=== PATIENT | male | born 1935 | race Caucasian/White ===

== ENCOUNTER 2016-11-13 10:04 | Emergency (ER) | payer MEDICARE, BC ==
[2016-11-13 11:35] VITALS: BP 145/84
[2016-11-13] MEDS ORDERED: Enoxaparin 80 MG/0.8 ML Syringe SUBCUT ONE (13:03)
--- NOTE | 2016-11-13 13:34 | EDM.PDOC ---
ED HPI GENERAL MEDICAL PROBLEM - General Chief Complaint: Lower Extremity Injury/Pain Stated Complaint: from clinic maybe BLOOD CLOT Time Seen by Provider: 11/13/16 11:39 Source of Information: Reports: Patient, Other (Clinic) - History of Present Illness INITIAL COMMENTS - FREE TEXT/NARRATIVE: This patient complains of swelling in his right calf for the last couple of days. He was seen in clinic and it was felt he might have a DVT. The patient doesn't know why he might have gotten this - Related Data Allergies Allergy/AdvReac Type Severity Reaction Status Date / Time No Known Allergies Allergy Verified 11/13/16 11:27 Home Meds: Home Meds Albuterol [Ventolin HFA] 11/13/16 [History] Fluticasone/Salmeterol [Advair Diskus 500-50] 11/13/16 [History] metFORMIN HCl [Metformin HCl] 11/13/16 [History] Past Medical History Cardiovascular History: Reports: High Cholesterol, Hypertension Respiratory History: Reports: Asthma Endocrine/Metabolic History: Reports: Diabetes, Type II - Past Surgical History HEENT Surgical History: Reports: Naso-Sinus Surgery, Tonsillectomy Male Surgical History: Reports: Prostatectomy Social & Family History - Tobacco Use Smoking Status *Q: Never Smoker Review of Systems - Review of Systems Review Of Systems: ROS reveals no pertinent complaints other than HPI. ED EXAM, GENERAL - Physical Exam Exam: See Below Exam Limited By: No Limitations General Appearance: Alert, WD/WN, No Apparent Distress Extremities: Other (The right lower leg from the knee down is moderately swollen. Veins appear to be slightly distended. No obvious erythema.) Neurological: Alert, Oriented, No Motor/Sensory Deficits Skin Exam: Warm, Dry Course - Vital Signs Last Recorded V/S: Last Vital Signs Temp 36.6 C 11/13/16 11:33 Pulse 71 11/13/16 11:33 Resp 14 11/13/16 11:33 BP 145/84 H 11/13/16 11:33 Pulse Ox 98 11/13/16 11:33 - Orders/Labs/Meds Orders: Active Orders 24 hr Category Date Time Status VL Duplex Lwr Ext Veins Ltd Rt [US] Stat Exams 11/13/16 11:47 Taken Labs: Laboratory Tests 11/13/16 11/13/16 11/13/16 Range/Units 12:00 12:00 12:00 WBC 11.6 H (4.5-11.0) K/uL RBC 4.39 (4.30-5.90) M/uL Hgb 13.8 (12.0-15.0) g/dL Hct 40.7 (40.0-54.0) % MCV 93 (80-98) fL MCH 31 (27-31) pg MCHC 34 (32-36) % Plt Count 133 L (150-400) K/uL Neut % (Auto) 72 H (36-66) % Lymph % (Auto) 14 L (24-44) % [place] % (Auto) 12 H (2-6) % Eos % (Auto) 2 (2-4) % Baso % (Auto) 0 (0-1) % PT 9.6 (9.5-12.0) sec INR 0.90 (0.80-1.20) APTT 26.6 L (27.0-36.0) sec Sodium 139 L (140-148) mmol/L Potassium 4.2 (3.6-5.2) mmol/L Chloride 105 (100-108) mmol/L Carbon Dioxide 30 (21-32) mmol/L Anion Gap 8.2 (5.0-14.0) mmol/L BUN 17 (7-18) mg/dL Creatinine 1.3 (0.8-1.3) mg/dL Est Cr Clr Drug Dosing 42.26 mL/min Estimated GFR (MDRD) 53 L (>60) Glucose 156 H (74-106) mg/dL Calcium 8.5 (8.5-10.1) mg/dL Total Bilirubin 0.4 (0.2-1.0) mg/dL AST 16 (15-37) U/L ALT 20 (12-78) U/L Alkaline Phosphatase 89 (46-116) U/L Total Protein 6.7 (6.4-8.2) g/dL Albumin 3.1 L (3.4-5.0) g/dL Globulin 3.6 H (2.3-3.5) g/dL Albumin/Globulin Ratio 0.9 L (1.2-2.2) Meds: Medications Discontinued Medications Generic Name Dose Route Start Last Admin Trade Name Freq PRN Reason Stop Dose Admin Enoxaparin Sodium 75 mg 11/13/16 13:03 Lovenox SUBCUT 11/13/16 13:04 ONETIME ONE - Re-Assessments/Exams Free Text/Narrative Re-Assessment/Exam: 11/13/16 13:35 Venous Doppler shows occlusion of the popliteal veins distally. Free Text/Narrative Re-Assessment/Exam: 11/13/16 13:35 Patient received Lovenox 80 mg subcutaneously. He'll be instructed in self administration. Discussed with him the need to be on Coumadin for several months he'll take the Lovenox twice daily for 5 days started him on the Coumadin today he'll need to follow-up with his doctor in a few days. Departure - Departure Time of Disposition: 13:36 Disposition: Home, Self-Care 01 Condition: Fair Clinical Impression: Deep venous thrombosis of calf - Discharge Information Forms: ED Department Discharge Additional Instructions: Give yourself shots of Lovenox 80 mg subcutaneously every 12 hours for the next 5 days. Take Coumadin 5 mg daily. See your doctor on Tuesday because your doctor will decide on how much Coumadin you should take and for how long you should take it. Your doctor will decide when you can to stop using the Lovenox also. Expect to be taking Coumadin for the next several months. Blood clots can break off and go to your lungs and cause some severe problems so if you begin developing sudden chest pain or shortness of breath called 911. - My Orders Last 24 Hours: My Active Orders 11/13/16 11:47 VL Duplex Lwr Ext Veins Ltd Rt [US] Stat - Assessment/Plan Last 24 Hours: My Active Orders 11/13/16 11:47 VL Duplex Lwr Ext Veins Ltd Rt [US] Stat
== END 2016-11-13 14:35 | disposition home or self-care (01) ==
LOC: JP.ED 10:04
DX: I82.4Z1 Acute embolism and thrombosis of unspecified deep veins of right distal lower extremity (principal); E78.00 Pure hypercholesterolemia, unspecified; I10 Essential (primary) hypertension; J45.909 Unspecified asthma, uncomplicated; E11.9 Type 2 diabetes mellitus without complications; Z98.890 Other specified postprocedural states
CPT/HCPCS: 36415; 80053; 85025; 85610; 85730; 93971; 96372; 99284; J1650

== ENCOUNTER 2017-06-24 08:42 | Day surgery (SDC) | payer MEDICARE, BC ==
[~2017-06-24 08:42] MED LIST: Bupivacaine 0.5% 50 ML MDV ONE; Dexamethasone 4 MG/ML SDV ONE; Lidocaine 1% with EPINEPHrine 1:100,000 50 ML MDV ONE; Neostigmine Methylsulfate 1 MG/ML 5 ML Syringe ONE; Ondansetron 4 MG/2 ML SDV ONE; Oxytocin 10 Units/1 ML SDV ONE; Propofol 200 MG/20 ML SDV ONE; Rocuronium 50 MG/5 ML Vial ONE; Succinylcholine/Normal Saline 200 MG/10 ML Syringe ONE; fentaNYL 250 MCG/5 ML SDV ONE
[2017-06-24] MEDS ORDERED: Sodium Chloride 0.9% 1,000 ML IV SCH (09:30)
[2017-06-24] MEDS ORDERED: methylPREDNISolone Sodium Succinate 125 MG/2 ML SDV IVPUSH ONE (09:47)
[2017-06-24] MEDS ORDERED: ceFAZolin 2 GM in Premix Bag 1 BAG IV ONE (10:00)
[2017-06-24] MEDS ORDERED: methylPREDNISolone Sodium Succinate 125 MG/2 ML SDV IM ONE (10:00)
[2017-06-24] MEDS ORDERED: Albuterol/Ipratropium 3.0-0.5 MG/3 ML Neb Soln NEB ONE (10:00)
[2017-06-24] MEDS ORDERED: metroNIDAZOLE/Normal Saline 500 MG in Premix Bag 1 BAG IV ONE (10:00)
[2017-06-24] MEDS ORDERED: Lidocaine 1% with EPINEPHrine 1:100,000 50 ML MDV INJECT ONE (10:53)
[2017-06-24] MEDS ORDERED: Bupivacaine 0.5% 50 ML MDV INJECT ONE (10:53)
[2017-06-24] MEDS ORDERED: Ketorolac 60 MG/2 ML SDV ONE (11:04)
[2017-06-24] MEDS ORDERED: Morphine 2 MG/ML Syringe IVPUSH ONE (11:28)
[2017-06-24] MEDS ORDERED: Acetaminophen/oxyCODONE 325-5 MG Tab PO PRN (13:10)
[2017-06-24 14:18] VITALS: BP 119/91
--- NOTE | 2017-06-27 09:21 | OR ---
DATE OF PROCEDURE: 06/24/2017 PROCEDURE: Right total extraperitoneal hernia repair, incarcerated, no evidence of strangulation. COMPLICATIONS: None. 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 ANESTHESIA: General/local. INDICATION: Indirect inguinal hernia. RISKS: Risks, benefits, alternatives, and limitations including, but not limited to infection, bleeding, and perforation of abdominal structures along with hernia failure were explained to the patient along with my experience, and they understand these risks and wished to proceed. PROCEDURE IN DETAIL: The patient was placed in supine position. An infraumbilical incision was made. This was carried down with electrocautery to the external fascia, which was opened with electrocautery. Army-[place] was used to spread down to the peritoneum and a Pean was used to create a potential space. Dissecting balloon was then gently advanced and subsequently insufflated for 1 minute. This was all performed under direct visualization. Minimal bleeding was noted during this process. The balloon was then removed and the cuff was insufflated. The hernia was readily identified. Using a nuytchh-ny-ywnuoe technique, the avascular plane was identified and blunt dissection was commenced. The sac was able to be reduced along with a cord lipoma. The vascular structures and vas deferens were identified, but were not interacted with in anyway. The "triangle of doom" and the "triangle of pain" were not interactive with or entered during this procedure. During this process, two 5 mm ports were also entered under direct visualization in the midline. This was done at the beginning of the procedure. The mesh was then rolled, introduced with an overlay from the pubic symphysis lateral. Approximately 2 cm of overlap of the pubic symphysis was commenced. This was unfolded and laid flat. The air was then removed. An additional 5 mm port was entered in the right upper abdomen due to small air leak through the peritoneum, although, no peritoneal injuries were seen. The patient tolerated the procedure well. Nando May MD /[id number]
== END 2017-06-24 14:19 | disposition home or self-care (01) ==
LOC: JP.SDS 08:42
PROVIDERS: ATTEND Surgery
DX: K40.30 Unilateral inguinal hernia, with obstruction, without gangrene, not specified as recurrent (principal); J44.9 Chronic obstructive pulmonary disease, unspecified; G47.33 Obstructive sleep apnea (adult) (pediatric); E11.9 Type 2 diabetes mellitus without complications; Z88.1 Allergy status to other antibiotic agents; Z88.2 Allergy status to sulfonamides; Z88.8 Allergy status to other drugs, medicaments and biological substances; Z91.018 Allergy to other foods
CPT/HCPCS: 49650; 82962; A9270; C1781; J0690; J1100; J1885; J2270; J2405; J2590; J2704; J2930; J3010; J7040; J7620

== ENCOUNTER 2018-09-12 21:18 | Emergency (ER) | payer MEDICARE, BC ==
[2018-09-12] MEDS ORDERED: Sodium Chloride 0.9% 10 ML Syringe FLUSH PRN (21:36)
[2018-09-12] MEDS ORDERED: methylPREDNISolone Sodium Succinate 125 MG/2 ML SDV IVPUSH ONE (21:36)
[2018-09-12] MEDS ORDERED: Albuterol 0.083% 2.5 MG/3 ML Neb Soln NEB ONE (21:36)
[2018-09-12] MEDS ORDERED: Benzonatate 100 MG Cap PO ONE (21:37)
--- NOTE | 2018-09-12 21:39 | EDM.PDOC ---
ED HPI GENERAL MEDICAL PROBLEM - General Chief Complaint: Respiratory Problem Stated Complaint: SOB Time Seen by Provider: 09/12/18 21:38 Source of Information: Reports: Patient History Limitations: Reports: No Limitations - History of Present Illness INITIAL COMMENTS - FREE TEXT/NARRATIVE: pt arrived wheezy and sob. Onset: Other ( started 2-3 days ago worse in the last 24 hours. ) Duration: Hour(s): Location: Reports: Chest Associated Symptoms: Reports: Cough, Shortness of Breath Upper Chest Pain Score (Numeric/FACES): 4 - Related Data Allergies Allergy/AdvReac Type Severity Reaction Status Date / Time alcohol Allergy Cannot Verified 09/12/18 21:28 Remember amoxicillin [From Augmentin] Allergy Cannot Verified 09/12/18 21:28 Remember atorvastatin Allergy Cannot Verified 09/12/18 21:28 Remember clavulanic acid Allergy Cannot Verified 09/12/18 21:28 [From Augmentin] Remember clindamycin Allergy Cannot Verified 09/12/18 21:28 Remember fish derived Allergy Cannot Verified 09/12/18 21:28 Remember montelukast [From Singulair] Allergy Cannot Verified 09/12/18 21:28 Remember niacin Allergy Cannot Verified 09/12/18 21:28 Remember pravastatin Allergy Cannot Verified 09/12/18 21:28 Remember Wsxjarx-Rpu-Hqn Reductase Allergy Cannot Verified 09/12/18 21:28 Inhibitor Remember Sulfa (Sulfonamide Allergy Cannot Verified 09/12/18 21:28 Antibiotics) Remember DUST MITE Allergy Cannot Uncoded 09/12/18 21:28 Remember MINT CHOCOLATE CHIPS Allergy Cannot Uncoded 09/12/18 21:28 Remember Home Meds: Home Meds Albuterol [Ventolin HFA] 2 puff INH Q4H PRN 11/13/16 [History] Fluticasone/Salmeterol [Advair Diskus 500-50] 1 puff INH BID 11/13/16 [History] metFORMIN HCl [Metformin HCl] 500 mg PO BID 11/13/16 [History] Codeine/guaiFENesin [guaiFENesin-Codeine Syrup] 10 ml PO ASDIRECTED PRN [History] Fluticasone Propionate [Flonase] 2 spray INH DAILY 06/21/17 [History] diphenhydrAMINE [Benadryl] 25 mg PO Q6H PRN 06/21/17 [History] Aspirin 81 mg PO DAILY 09/12/18 [History] Past Medical History Cardiovascular History: Reports: High Cholesterol, Hypertension Respiratory History: Reports: Asthma Genitourinary History: Reports: Prostate Disorder Endocrine/Metabolic History: Reports: Diabetes, Type II Oncologic (Cancer) History: Reports: Prostate - Past Surgical History HEENT Surgical History: Reports: Naso-Sinus Surgery, Tonsillectomy Respiratory Surgical History: Reports: None GI Surgical History: Reports: Colonoscopy Male Surgical History: Reports: Prostatectomy Endocrine Surgical History: Reports: None Social & Family History - Family History Family Medical History: Noncontributory - Tobacco Use Smoking Status *Q: Never Smoker - Caffeine Use Caffeine Use: Reports: Coffee, Tea - Recreational Drug Use Recreational Drug Use: No ED ROS GENERAL - Review of Systems Review Of Systems: See Below Constitutional: Reports: No Symptoms HEENT: Reports: No Symptoms Respiratory: Reports: Shortness of Breath, Wheezing, Other ( chest is very tight. ) Cardiovascular: Reports: No Symptoms Endocrine: Reports: No Symptoms GI/Abdominal: Reports: No Symptoms : Reports: No Symptoms Musculoskeletal: Reports: No Symptoms Skin: Reports: No Symptoms Neurological: Reports: No Symptoms Psychiatric: Reports: No Symptoms ED EXAM, GENERAL - Physical Exam Exam: See Below Free Text/Narrative:: pt arrived with wheezing and sob. He does have a history of asthma. He has been out working in the yard so he feels that may have flared this. He has not had a fever. Exam Limited By: No Limitations General Appearance: Alert, Moderate Distress Ears: Normal TMs Nose: Normal Inspection Throat/Mouth: Normal Inspection Head: Atraumatic Neck: Normal Inspection Respiratory/Chest: Decreased Breath Sounds, Wheezing Cardiovascular: Regular Rate, Rhythm GI/Abdominal: Soft, Non-Tender (Male) Exam: Deferred Rectal (Males) Exam: Deferred Back Exam: Normal Inspection Extremities: Normal Inspection Neurological: Alert, Oriented, Normal Cognition Course - Vital Signs Last Recorded V/S: Last Vital Signs Temp 36.7 C 09/12/18 21:25 Pulse 96 09/12/18 21:25 Resp 15 09/12/18 23:57 BP 136/63 09/12/18 23:57 Pulse Ox 97 09/12/18 23:57 - Orders/Labs/Meds Orders: Active Orders 24 hr Category Date Time Status RT Aerosol Therapy [RC] ASDIRECTED Care 09/12/18 21:36 Active RT Aerosol Therapy [RC] ASDIRECTED Care 09/12/18 23:04 Active RT Aerosol Therapy [RC] ASDIRECTED Care 09/12/18 23:57 Ordered Sodium Chloride 0.9% [Saline Flush] Med 09/12/18 21:36 Active 10 ml FLUSH ASDIRECTED PRN Saline Lock Insert [OM.PC] Routine Oth 09/12/18 21:36 Ordered Medication Orders Sodium Chloride (Saline Flush) 10 ml FLUSH ASDIRECTED PRN PRN Reason: Keep Vein Open Last Admin: 09/12/18 21:44 Dose: 10 ml Labs: Laboratory Tests 09/12/18 09/12/18 Range/Units 21:46 21:46 WBC 10.0 (4.5-11.0) K/uL RBC 4.16 L (4.30-5.90) M/uL Hgb 12.8 (12.0-15.0) g/dL Hct 39.5 L (40.0-54.0) % MCV 95 (80-98) fL MCH 31 (27-31) pg MCHC 32 (32-36) % Plt Count 204 (150-400) K/uL Neut % (Auto) 59 (36-66) % Lymph % (Auto) 20 L (24-44) % [place] % (Auto) 11 H (2-6) % Eos % (Auto) 10 H (2-4) % Baso % (Auto) 1 (0-1) % Sodium 142 (140-148) mmol/L Potassium 4.0 (3.6-5.2) mmol/L Chloride 106 (100-108) mmol/L Carbon Dioxide 29 (21-32) mmol/L Anion Gap 7.4 (5.0-14.0) mmol/L BUN 22 H (7-18) mg/dL Creatinine 1.4 H (0.8-1.3) mg/dL Est Cr Clr Drug Dosing 37.98 mL/min Estimated GFR (MDRD) 49 L (>60) Glucose 103 (74-106) mg/dL Calcium 9.3 (8.5-10.1) mg/dL Total Bilirubin 0.2 (0.2-1.0) mg/dL AST 19 (15-37) U/L ALT 21 (12-78) U/L Alkaline Phosphatase 97 (46-116) U/L NT-Pro-B Natriuret Pep 322 (5-450) pg/mL Total Protein 7.1 (6.4-8.2) g/dL Albumin 3.7 (3.4-5.0) g/dL Globulin 3.4 (2.3-3.5) g/dL Albumin/Globulin Ratio 1.1 L (1.2-2.2) Meds: Medications Generic Name Dose Route Start Last Admin Trade Name Freq PRN Reason Stop Dose Admin Sodium Chloride 10 ml 09/12/18 21:36 09/12/18 21:44 Saline Flush FLUSH 10 ml ASDIRECTED PRN Administration Keep Vein Open Discontinued Medications Generic Name Dose Route Start Last Admin Trade Name Freq PRN Reason Stop Dose Admin Albuterol 2.5 mg 09/12/18 21:36 09/12/18 21:44 Proventil Neb Soln NEB 09/12/18 21:37 2.5 mg ONETIME ONE Administration Albuterol/Ipratropium 3 ml 09/12/18 23:04 09/12/18 23:11 Duoneb 3.0-0.5 Mg/3 Ml NEB 09/12/18 23:05 3 ml ONETIME ONE Administration Albuterol/Ipratropium 3 ml 09/12/18 23:56 Duoneb 3.0-0.5 Mg/3 Ml NEB 09/12/18 23:57 ONETIME ONE Benzonatate 200 mg 09/12/18 21:37 09/12/18 21:45 Tessalon Perles PO 09/12/18 21:38 200 mg ONETIME ONE Administration Methylprednisolone Sodium Succinate 125 mg 09/12/18 21:36 09/12/18 21:45 Solu-Medrol IVPUSH 09/12/18 21:37 125 mg ONETIME ONE Administration - Re-Assessments/Exams Free Text/Narrative Re-Assessment/Exam: 09/13/18 00:05 wbc is not elevated. The diff shows eosinophils increased. His chest xray did not reveal a infiltrate. Departure - Departure Time of Disposition: 23:51 Disposition: Home, Self-Care 01 Condition: Fair Clinical Impression: Acute asthma flare - Discharge Information Referrals: PCP,None [Primary Care Provider] - Forms: ED Department Discharge Care Plan Goals: cont other meds the same, use the albuterol inhaler only when absolutely necessary, duolnebs qid, send a nebulizer home with him, send one duol neb home with the pt, Predisone 10mg 2 tab daily for 4 days, 1 tab daily for 4 days , appt with Dr Gorman in 4-5 days. tesslon perles 200mg q8h. - My Orders Last 24 Hours: My Active Orders 09/12/18 21:36 RT Aerosol Therapy [RC] ASDIRECTED Sodium Chloride 0.9% [Saline Flush] 10 ml FLUSH ASDIRECTED PRN Saline Lock Insert [OM.PC] Routine 09/12/18 23:04 RT Aerosol Therapy [RC] ASDIRECTED 09/12/18 23:57 RT Aerosol Therapy [RC] ASDIRECTED - Assessment/Plan Last 24 Hours: My Active Orders 09/12/18 21:36 RT Aerosol Therapy [RC] ASDIRECTED Sodium Chloride 0.9% [Saline Flush] 10 ml FLUSH ASDIRECTED PRN Saline Lock Insert [OM.PC] Routine 09/12/18 23:04 RT Aerosol Therapy [RC] ASDIRECTED 09/12/18 23:57 RT Aerosol Therapy [RC] ASDIRECTED
--- NOTE | 2018-09-12 22:27 | CRLCR ---
INDICATION: Shortness of breath, wheezing TECHNIQUE: Chest radiograph 2 views COMPARISON: 07/05/2010 FINDINGS: Mediastinum: The mediastinum is normal in appearance. The heart silhouette is normal in size and morphology. Lung: Both lungs are unremarkable in appearance. No sign of pleural effusion seen. No pneumothorax is identified. Musculoskeletal: Unremarkable for age. IMPRESSION: 1. No acute cardiopulmonary disease is seen. Dictated by: Mickey Brice MD @ 09/12/2018 22:26:52 (Electronically Signed)
[2018-09-12] MEDS ORDERED: Albuterol/Ipratropium 3.0-0.5 MG/3 ML Neb Soln NEB ONE ×2 (23:04→23:56)
[2018-09-12 23:58] VITALS: BP 136/63
== END 2018-09-13 00:37 | disposition home or self-care (01) ==
LOC: JP.ED 21:18
DX: J45.901 Unspecified asthma with (acute) exacerbation (principal); Z88.8 Allergy status to other drugs, medicaments and biological substances; Z88.0 Allergy status to penicillin
CPT/HCPCS: 36415; 71046; 80053; 83880; 85025; 94640; 96374; 99285; A9270; J2930; J7620-GY

== ENCOUNTER 2018-10-16 03:07 | Emergency (ER) | payer MEDICARE, BC ==
[2018-10-16 03:24] VITALS: BP 138/77
[2018-10-16] MEDS ORDERED: predniSONE 20 MG Tab PO ONE (03:42)
[2018-10-16] MEDS ORDERED: Albuterol/Ipratropium 3.0-0.5 MG/3 ML Neb Soln NEB ONE (03:42)
--- NOTE | 2018-10-16 03:53 | EDM.PDOC ---
ED HPI GENERAL MEDICAL PROBLEM - General Chief Complaint: Respiratory Problem Stated Complaint: COUGH,ASTHMA ATTACK Time Seen by Provider: 10/16/18 03:42 Source of Information: Reports: Patient History Limitations: Reports: No Limitations - History of Present Illness INITIAL COMMENTS - FREE TEXT/NARRATIVE: This man is here because of the an asthma exacerbation. It seems he ran out of his nebulizer solution. It sounds like he has been using DuoNeb. He was seen in the ER about a month ago and got a course of prednisone and the nebulizer. He does have a metered-dose inhaler at home with think it's albuterol but says it doesn't work very well. He denies any fever. There is mild cough which is nonproductive. No chest pain or palpitations denies pain Pain Score (Numeric/FACES): 0 - Related Data Allergies Allergy/AdvReac Type Severity Reaction Status Date / Time alcohol Allergy Cannot Verified 09/12/18 21:28 Remember amoxicillin [From Augmentin] Allergy Cannot Verified 09/12/18 21:28 Remember atorvastatin Allergy Cannot Verified 09/12/18 21:28 Remember clavulanic acid Allergy Cannot Verified 09/12/18 21:28 [From Augmentin] Remember clindamycin Allergy Cannot Verified 09/12/18 21:28 Remember fish derived Allergy Cannot Verified 09/12/18 21:28 Remember montelukast [From Singulair] Allergy Cannot Verified 09/12/18 21:28 Remember niacin Allergy Cannot Verified 09/12/18 21:28 Remember pravastatin Allergy Cannot Verified 09/12/18 21:28 Remember Xqpcliw-Nas-Twj Reductase Allergy Cannot Verified 09/12/18 21:28 Inhibitor Remember Sulfa (Sulfonamide Allergy Cannot Verified 09/12/18 21:28 Antibiotics) Remember DUST MITE Allergy Cannot Uncoded 09/12/18 21:28 Remember MINT CHOCOLATE CHIPS Allergy Cannot Uncoded 09/12/18 21:28 Remember Home Meds: Home Meds Albuterol [Ventolin HFA] 2 puff INH Q4H PRN 11/13/16 [History] metFORMIN HCl [Metformin HCl] 500 mg PO BID 11/13/16 [History] Fluticasone Propionate [Flonase] 2 spray INH DAILY 06/21/17 [History] diphenhydrAMINE [Benadryl] 25 mg PO Q6H PRN 06/21/17 [History] Aspirin 81 mg PO DAILY 09/12/18 [History] Past Medical History Cardiovascular History: Reports: High Cholesterol, Hypertension Respiratory History: Reports: Asthma Genitourinary History: Reports: Prostate Disorder Endocrine/Metabolic History: Reports: Diabetes, Type II Oncologic (Cancer) History: Reports: Prostate - Past Surgical History HEENT Surgical History: Reports: Naso-Sinus Surgery, Tonsillectomy GI Surgical History: Reports: Colonoscopy Male Surgical History: Reports: Prostatectomy Social & Family History - Family History Family Medical History: Noncontributory - Tobacco Use Smoking Status *Q: Never Smoker - Caffeine Use Caffeine Use: Reports: Coffee, Soda - Recreational Drug Use Recreational Drug Use: No ED ROS GENERAL - Review of Systems Review Of Systems: See Below Constitutional: Reports: No Symptoms HEENT: Reports: No Symptoms Respiratory: Reports: Shortness of Breath, Wheezing Cardiovascular: Reports: No Symptoms Endocrine: Reports: No Symptoms GI/Abdominal: Reports: No Symptoms : Reports: No Symptoms ED EXAM, GENERAL - Physical Exam Exam: See Below Exam Limited By: No Limitations General Appearance: Alert, WD/WN, No Apparent Distress Respiratory/Chest: Wheezing (Pretty heavy wheezing and all lung zuniga) Cardiovascular: Normal Peripheral Pulses, Regular Rate, Rhythm, No Murmur Extremities: No Pedal Edema Neurological: Alert, Oriented Skin Exam: Warm, Dry Course - Vital Signs Last Recorded V/S: Last Vital Signs Temp 36.7 C 10/16/18 03:35 Pulse 99 10/16/18 03:35 Resp 28 H 10/16/18 03:35 BP 138/77 10/16/18 03:35 Pulse Ox 94 L 10/16/18 03:35 - Orders/Labs/Meds Orders: Active Orders 24 hr Category Date Time Status RT Aerosol Therapy [RC] ASDIRECTED Care 10/16/18 03:42 Active RT Aerosol Therapy [RC] ASDIRECTED Care 10/16/18 04:17 Ordered Meds: Medications Discontinued Medications Generic Name Dose Route Start Last Admin Trade Name Freq PRN Reason Stop Dose Admin Albuterol 2.5 mg 10/16/18 04:17 Proventil Neb Soln NEB 10/16/18 04:18 ONETIME ONE Albuterol/Ipratropium 3 ml 10/16/18 03:42 10/16/18 03:48 Duoneb 3.0-0.5 Mg/3 Ml NEB 10/16/18 03:43 3 ml ONETIME ONE Administration Prednisone 40 mg 10/16/18 03:42 10/16/18 03:48 Prednisone PO 10/16/18 03:43 40 mg ONETIME ONE Administration - Re-Assessments/Exams Free Text/Narrative Re-Assessment/Exam: 10/16/18 04:22 the patient was given a DuoNeb treatment and 40 mg of prednisone. He felt quite a bit better afterwards. He was reexamined and still has a little bit of wheezing so he was given a plain albuterol treatment and then will be discharged. Departure - Departure Time of Disposition: 04:23 Disposition: Home, Self-Care 01 Condition: Fair Clinical Impression: Exacerbation of asthma - Discharge Information Referrals: Trev Gorman MD [Primary Care Provider] - Forms: ED Department Discharge Additional Instructions: Use the albuterol nebulizer solution the same way you used the DuoNeb before. That is use it by nebulizer every 4-6 hours as needed for wheezing. The Medrol dose pack, methylprednisolone, is similar to prednisone and is a steroid. This will help reduce inflammation in the lungs that causes the wheezing. Follow the package instructions See your Dr. if no better in 2 or 3 days and return to the ER at any time if worse - My Orders Last 24 Hours: My Active Orders 10/16/18 03:42 RT Aerosol Therapy [RC] ASDIRECTED 10/16/18 04:17 RT Aerosol Therapy [RC] ASDIRECTED - Assessment/Plan Last 24 Hours: My Active Orders 10/16/18 03:42 RT Aerosol Therapy [RC] ASDIRECTED 10/16/18 04:17 RT Aerosol Therapy [RC] ASDIRECTED
[2018-10-16] MEDS ORDERED: Albuterol 0.083% 2.5 MG/3 ML Neb Soln NEB ONE (04:17)
== END 2018-10-16 05:00 | disposition home or self-care (01) ==
LOC: JP.ED 03:07
DX: J45.901 Unspecified asthma with (acute) exacerbation (principal); E11.9 Type 2 diabetes mellitus without complications; I10 Essential (primary) hypertension; E78.00 Pure hypercholesterolemia, unspecified; Z79.84 Long term (current) use of oral hypoglycemic drugs; Z88.2 Allergy status to sulfonamides; Z91.09 Other allergy status, other than to drugs and biological substances; Z88.8 Allergy status to other drugs, medicaments and biological substances; Z91.013 Allergy to seafood; Z88.1 Allergy status to other antibiotic agents
CPT/HCPCS: 94640; 99283; A9270; J7620-GY

== ENCOUNTER 2019-05-29 23:09 | Emergency (ER) | payer MEDICARE, BC ==
[2019-05-29 23:37] VITALS: BP 128/74; PULSE 88
--- NOTE | 2019-05-30 00:47 | EDM.PDOC ---
ED HPI GENERAL MEDICAL PROBLEM - General Chief Complaint: Respiratory Problem Stated Complaint: HARD TIME BREATHING Time Seen by Provider: 05/30/19 00:33 Source of Information: Reports: Patient, RN Notes Reviewed History Limitations: Reports: No Limitations - History of Present Illness INITIAL COMMENTS - FREE TEXT/NARRATIVE: 83-year-old gentleman presents emergency department today complaint of difficulty with his asthma, he has had significant cough that his duo nebs is not helping he does use a combination of Advair as well. No chest pain no fevers, states is been going on for a couple of weeks is progressively getting worse chest tightness Pain Score (Numeric/FACES): 4 - Related Data Allergies Allergy/AdvReac Type Severity Reaction Status Date / Time alcohol Allergy Cannot Verified 05/30/19 00:07 Remember amoxicillin [From Augmentin] Allergy Cannot Verified 05/30/19 00:07 Remember atorvastatin Allergy Cannot Verified 05/30/19 00:07 Remember clavulanic acid Allergy Cannot Verified 05/30/19 00:07 [From Augmentin] Remember clindamycin Allergy Cannot Verified 05/30/19 00:07 Remember fish derived Allergy Cannot Verified 05/30/19 00:07 Remember montelukast [From Singulair] Allergy Cannot Verified 05/30/19 00:07 Remember niacin Allergy Cannot Verified 05/30/19 00:07 Remember pravastatin Allergy Cannot Verified 05/30/19 00:07 Remember Xboavtb-Dof-Ozv Reductase Allergy Cannot Verified 05/30/19 00:07 Inhibitor Remember Sulfa (Sulfonamide Allergy Cannot Verified 05/30/19 00:07 Antibiotics) Remember DUST MITE Allergy Cannot Uncoded 05/30/19 00:07 Remember MINT CHOCOLATE CHIPS Allergy Cannot Uncoded 05/30/19 00:07 Remember Home Meds: Home Meds Albuterol [Ventolin HFA] 2 puff INH Q4H PRN 11/13/16 [History] metFORMIN HCl [Metformin HCl] 500 mg PO BID 11/13/16 [History] Fluticasone Propionate [Flonase] 2 spray INH DAILY 06/21/17 [History] Aspirin 81 mg PO DAILY 09/12/18 [History] Fluticasone/Salmeterol [Advair 500-50] 1 inh INH BID 05/30/19 [History] Past Medical History HEENT History: Reports: Cataract, Impaired Vision, Other (See Below) Other HEENT History: glasses Cardiovascular History: Reports: Blood Clots/VTE/DVT, High Cholesterol, Other ( See Below) Other Cardiovascular History: blood clot right leg Respiratory History: Reports: Asthma Genitourinary History: Reports: Prostate Disorder Musculoskeletal History: Reports: Arthritis Endocrine/Metabolic History: Reports: Diabetes, Type II Oncologic (Cancer) History: Reports: Prostate Dermatologic History: Reports: Other (See Below) Other Dermatologic History: dry skin - Infectious Disease History Infectious Disease History: Reports: Chicken Pox, Measles, Mumps - Past Surgical History HEENT Surgical History: Reports: Cataract Surgery, Naso-Sinus Surgery, Tonsillectomy GI Surgical History: Reports: Colonoscopy Male Surgical History: Reports: Prostatectomy Social & Family History - Family History Family Medical History: Noncontributory - Tobacco Use Smoking Status *Q: Never Smoker - Caffeine Use Caffeine Use: Reports: Coffee - Recreational Drug Use Recreational Drug Use: No ED ROS GENERAL - Review of Systems Review Of Systems: See Below Constitutional: Reports: No Symptoms. Denies: Fever, Chills HEENT: Reports: No Symptoms Respiratory: Reports: Cough. Denies: Shortness of Breath, Wheezing, Sputum Cardiovascular: Reports: No Symptoms GI/Abdominal: Reports: No Symptoms ED EXAM, GENERAL - Physical Exam Exam: See Below Exam Limited By: No Limitations General Appearance: Alert, WD/WN, No Apparent Distress Respiratory/Chest: No Respiratory Distress, Lungs Clear, Normal Breath Sounds, No Accessory Muscle Use, Chest Non-Tender Cardiovascular: Regular Rate, Rhythm, No Murmur Course - Vital Signs Last Recorded V/S: Last Vital Signs Temp 96.8 F 05/30/19 00:01 Pulse 88 05/30/19 00:01 Resp 16 05/30/19 00:01 BP 128/74 05/30/19 00:01 Pulse Ox 97 05/30/19 00:01 Departure - Departure Time of Disposition: 00:46 Disposition: Home, Self-Care 01 Condition: Fair Clinical Impression: Asthma, cough variant - Discharge Information Instructions: Asthma, Adult Referrals: Trev Gorman MD [Primary Care Provider] - Additional Instructions: Try the prednisone 20 mg once a day for the next 5 days, continue to use your DuoNeb every 6 hours as needed but if you do feel short of breath certainly can use this sooner than 6 hours, please followup with your primary care provider in 3-5 days if not better, please call return to the emergency department with worsening of symptoms. Sepsis Event Note - Evaluation Sepsis Screening Result: No Definite Risk - Focused Exam Vital Signs: Vital Signs Temp Pulse Resp BP Pulse Ox 05/30/19 00:01 96.8 F 88 16 128/74 97 05/29/19 23:34 96.8 F 88 16 128/74 97 Date Exam was Performed: 05/30/19 Time Exam was Performed: 00:44 - Assessment/Plan Plan: Assessment Acuity = acute Site and laterality = asthma exacerbation cough variant Etiology = unknown Manifestations = none Location of injury = Home Lab values = none Plan Elected to do a trial of prednisone 20 mg once a day for 5 days have him follow- up with his primary care in 3 to 5 days if no improvement This note was dictated using [employer] voice recognition software please call with any questions on syntax or grammar.
== END 2019-05-30 01:06 | disposition home or self-care (01) ==
LOC: JP.ED 23:09
DX: J45.991 Cough variant asthma (principal); E11.9 Type 2 diabetes mellitus without complications; J45.909 Unspecified asthma, uncomplicated; Z88.0 Allergy status to penicillin; Z88.8 Allergy status to other drugs, medicaments and biological substances; Z88.1 Allergy status to other antibiotic agents; Z91.013 Allergy to seafood; Z88.2 Allergy status to sulfonamides; Z79.82 Long term (current) use of aspirin; Z79.51 Long term (current) use of inhaled steroids
CPT/HCPCS: 99282; 99284

== ENCOUNTER 2020-09-29 15:13 | Observation (INO) | payer MEDICARE, BC ==
[2020-09-29] MEDS ORDERED: Iopamidol 755 Mg/ML 100 ML Bottle IV SCH (16:00)
[2020-09-29] MEDS ORDERED: Sodium Chloride 0.9% 100 ML IV SCH (16:00)
[2020-09-29] MEDS: Sodium Chloride 0.9% 10 ML Syringe FLUSH ONE ×2 (16:16→16:52)
--- NOTE | 2020-09-29 16:20 | EDM.PDOC ---
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 He reports that around 11 AM this morning he stood up from a chair and noted that the right side of his body felt weak. He notes some blurriness in the right side of his vision at this time as well. He was having some difficulty with his gait so needed to use a cane. The symptoms slowly improved. He continues to have some right-sided visual blurring and is using a cane for ambulation. He is otherwise feeling well. He has no headache. He has no history of similar symptoms in the past. He has not had any word finding difficulty or speech deficit. He has no history of stroke. No falls or trauma. - Related Data Allergies Allergy/AdvReac Type Severity Reaction Status Date / Time alcohol Allergy Cannot Verified 09/29/20 15:30 Remember amoxicillin [From Augmentin] Allergy Cannot Verified 09/29/20 15:30 Remember atorvastatin Allergy Cannot Verified 09/29/20 15:30 Remember clavulanic acid Allergy Cannot Verified 09/29/20 15:30 [From Augmentin] Remember clindamycin Allergy Cannot Verified 09/29/20 15:30 Remember fish derived Allergy Cannot Verified 09/29/20 15:30 Remember montelukast [From Singulair] Allergy Cannot Verified 09/29/20 15:30 Remember niacin Allergy Cannot Verified 09/29/20 15:30 Remember pravastatin Allergy Cannot Verified 09/29/20 15:30 Remember Uwrhama-Lzj-Owb Reductase Allergy Cannot Verified 09/29/20 15:30 Inhibitor Remember Sulfa (Sulfonamide Allergy Cannot Verified 09/29/20 15:30 Antibiotics) Remember DUST MITE Allergy Cannot Uncoded 09/29/20 15:30 Remember MINT CHOCOLATE CHIPS Allergy Cannot Uncoded 09/29/20 15:30 Remember Home Meds: Home Meds Albuterol [Ventolin HFA] 2 puff INH Q4H PRN 11/13/16 [History] metFORMIN HCl [Metformin HCl] 500 mg PO BID 11/13/16 [History] Fluticasone Propionate [Flonase] 2 spray INH DAILY 06/21/17 [History] Fluticasone/Salmeterol [Advair 500-50] 1 inh INH DAILY 05/30/19 [History] Past Medical History HEENT History: Reports: Cataract, Impaired Vision, Other (See Below) Other HEENT History: glasses Cardiovascular History: Reports: Blood Clots/VTE/DVT, High Cholesterol, Other (See Below) Other Cardiovascular History: blood clot right leg Respiratory History: Reports: Asthma Genitourinary History: Reports: Prostate Disorder Musculoskeletal History: Reports: Arthritis Endocrine/Metabolic History: Reports: Diabetes, Type II Oncologic (Cancer) History: Reports: Prostate Dermatologic History: Reports: Other (See Below) Other Dermatologic History: dry skin - Infectious Disease History Infectious Disease History: Reports: Chicken Pox, Measles, Mumps - Past Surgical History HEENT Surgical History: Reports: Cataract Surgery, Naso-Sinus Surgery, Tonsillectomy Cardiovascular Surgical History: Reports: None Respiratory Surgical History: Reports: None GI Surgical History: Reports: Colonoscopy Male Surgical History: Reports: Prostatectomy Endocrine Surgical History: Reports: None Social & Family History - Family History Family Medical History: No Pertinent Family History - Caffeine Use Caffeine Use: Reports: Coffee ED ROS GENERAL - Review of Systems Review Of Systems: See Below Constitutional: Reports: No Symptoms HEENT: Reports: No Symptoms Respiratory: Reports: No Symptoms Cardiovascular: Reports: No Symptoms Endocrine: Reports: No Symptoms GI/Abdominal: Reports: No Symptoms : Reports: No Symptoms Musculoskeletal: Reports: No Symptoms Skin: Reports: No Symptoms Neurological: Reports: Difficulty Walking, Weakness Psychiatric: Reports: No Symptoms Hematologic/Lymphatic: Reports: No Symptoms Immunologic: Reports: No Symptoms ED EXAM, NEURO - Physical Exam Exam: See Below Exam Limited By: No Limitations General Appearance: Alert, No Apparent Distress Ears: Normal External Exam Nose: Normal Inspection Throat/Mouth: Normal Inspection Head Exam: Atraumatic, Normocephalic Neck: Normal Inspection Respiratory/Chest: No Respiratory Distress, Lungs Clear Cardiovascular: Regular Rate, Rhythm GI/Abdominal: Soft, Non-Tender Neurological: Alert, Normal Mood/Affect, CN II-XII Intact, Other (Alert, oriented conversant with fluent speech. Cranial nerves II through XII are intact. No pronator drift. Upper extremity strength is 5/5 and symmetric. No lower extremity drift, strength is 5/5 and symmetric. Finger-nose testing is intact. No neglect. Visual zuniga are grossly normal. ) Back Exam: Normal Inspection Extremities: Normal Inspection Psychiatric: Normal Affect, Normal Mood Skin Exam: Warm, Dry #1 Interpretation EKG Date: 09/29/20 Rhythm: NSR QRS: Normal ST-T: Normal QT: Normal Course - Vital Signs Last Recorded V/S: Last Vital Signs Temp 36.7 C 09/30/20 03:28 Pulse 76 09/29/20 18:34 Resp 12 09/30/20 03:28 BP 140/62 09/30/20 03:28 Pulse Ox 94 L 09/30/20 03:28 - Orders/Labs/Meds Orders: Active Orders 24 hr Category Date Time Status Sodium Chloride 0.9% [Normal Saline] 100 ml Med 09/29/20 16:00 Active IV ASDIRECTED EKG 12 Lead [EK] Routine Ther 09/29/20 15:40 Stop Req Medication Orders Acetaminophen (Acetaminophen 325 Mg Tab) 650 mg PO Q4H PRN PRN Reason: Pain (Mild 1-3)/fever Albuterol (Albuterol 0.083% 2.5 Mg/3 Ml Neb Soln) 2.5 mg NEB Q4H PRN PRN Reason: Shortness Of Breath/wheezing Albuterol (Albuterol 8 Gm Inhaler) 0 gm INH Q4H PRN PRN Reason: Wheezing Albuterol/Ipratropium (Albuterol/Ipratropium 3.0-0.5 Mg/3 Ml Neb Soln) 3 ml NEB QID PRN PRN Reason: Shortness Of Breath/wheezing Aspirin (Aspirin 81 Mg Tab.Chew) 81 mg PO DAILY TARIQ Bisacodyl (Bisacodyl 5 Mg Tab) 5 mg PO DAILY PRN PRN Reason: Constipation Diphenhydramine HCl (Diphenhydramine 25 Mg Cap) 25 mg PO BEDTIME PRN PRN Reason: Insomnia Docusate Sodium (Docusate Sodium 100 Mg Cap) 100 mg PO BID PRN PRN Reason: Constipation Fluticasone Propionate (Fluticasone Propionate Nasal Marissa 16 Gm Bottle) 0 gm TARA BEDTIME TARIQ Sodium Chloride (Normal Saline) 100 mls @ 3 mls/sec IV ASDIRECTED TARIQ Last Admin: 09/29/20 16:51 Dose: 3 mls/sec Documented by: ALIYAH Melatonin (Melatonin 3 Mg Tab) 6 mg PO BEDTIME PRN PRN Reason: Insomnia Mometasone Furoate/Formoterol Fumar (Formoterol/Mometasone 200-5 Mcg 8.8 Gm Inhaler) 0 puff IH BEDTIME TARIQ Last Admin: 09/29/20 22:20 Dose: Not Given Documented by: CUCO Mometasone Furoate/Formoterol Fumar (Formoterol/Mometasone 200-5 Mcg 8.8 Gm Inhaler) 0 puff IH BEDTIME TARIQ Morphine Sulfate (Morphine 2 Mg/Ml Syringe) 2 mg IVPUSH Q2H PRN PRN Reason: Pain (severe 7-10) Ondansetron HCl (Ondansetron 4 Mg Tab.Dis) 4 mg PO Q6H PRN PRN Reason: Nausea able to take PO Ondansetron HCl (Ondansetron 4 Mg/2 Ml Sdv) 4 mg IV Q4H PRN PRN Reason: Nausea/Vomiting Oxycodone HCl (Oxycodone 5 Mg Tab) 5 mg PO Q4H PRN PRN Reason: Pain (moderate 4-6) Labs: Laboratory Tests 09/29/20 09/29/20 09/29/20 Range/Units 15:50 15:50 15:50 WBC 9.7 (4.5-11.0) K/uL RBC 4.21 L (4.30-5.90) M/uL Hgb 12.6 (12.0-15.0) g/dL Hct 39.2 L (40.0-54.0) % MCV 93 (80-98) fL MCH 30 (27-31) pg MCHC 32 (32-36) % Plt Count 220 (150-400) K/uL PT 10.1 (9.5-12.0) sec INR 0.93 (0.80-1.20) Sodium 141 (140-148) mmol/L Potassium 4.3 (3.6-5.2) mmol/L Chloride 104 (100-108) mmol/L Carbon Dioxide 29 (21-32) mmol/L Anion Gap 8.2 (5.0-14.0) mmol/L BUN 23 H (7-18) mg/dL Creatinine 1.3 (0.8-1.3) mg/dL Est Cr Clr Drug Dosing 39.53 mL/min Estimated GFR (MDRD) 53 L (>60) Glucose 102 (74-106) mg/dL Calcium 8.4 L (8.5-10.1) mg/dL Total Bilirubin 0.2 (0.2-1.0) mg/dL AST 15 (15-37) U/L ALT 21 (12-78) U/L Alkaline Phosphatase 98 (46-116) U/L Total Protein 6.7 (6.4-8.2) g/dL Albumin 3.4 (3.4-5.0) g/dL Globulin 3.3 (2.3-3.5) g/dL Albumin/Globulin Ratio 1.0 L (1.2-2.2) Urine Color (YELLOW) Urine Appearance (CLEAR) Urine pH (5.0-8.0) Ur Specific [place] (1.008-1.030) Urine Protein (NEGATIVE) mg/dL Urine Glucose (UA) (NEGATIVE) mg/dL Urine Ketones (NEGATIVE) mg/dL Urine Occult Blood (NEGATIVE) Urine Nitrite (NEGATIVE) Urine Bilirubin (NEGATIVE) Urine Urobilinogen (0.2-1.0) EU/dL Ur Leukocyte Esterase (NEGATIVE) Urine RBC (0-5) Urine WBC (0-5) Ur Epithelial Cells Amorphous Sediment Urine Bacteria Urine Mucus 09/29/20 Range/Units 16:44 WBC (4.5-11.0) K/uL RBC (4.30-5.90) M/uL Hgb (12.0-15.0) g/dL Hct (40.0-54.0) % MCV (80-98) fL MCH (27-31) pg MCHC (32-36) % Plt Count (150-400) K/uL PT (9.5-12.0) sec INR (0.80-1.20) Sodium (140-148) mmol/L Potassium (3.6-5.2) mmol/L Chloride (100-108) mmol/L Carbon Dioxide (21-32) mmol/L Anion Gap (5.0-14.0) mmol/L BUN (7-18) mg/dL Creatinine (0.8-1.3) mg/dL Est Cr Clr Drug Dosing mL/min Estimated GFR (MDRD) (>60) Glucose (74-106) mg/dL Calcium (8.5-10.1) mg/dL Total Bilirubin (0.2-1.0) mg/dL AST (15-37) U/L ALT (12-78) U/L Alkaline Phosphatase (46-116) U/L Total Protein (6.4-8.2) g/dL Albumin (3.4-5.0) g/dL Globulin (2.3-3.5) g/dL Albumin/Globulin Ratio (1.2-2.2) Urine Color Yellow (YELLOW) Urine Appearance Clear (CLEAR) Urine pH 6.0 (5.0-8.0) Ur Specific [place] 1.015 (1.008-1.030) Urine Protein Negative (NEGATIVE) mg/dL Urine Glucose (UA) Negative (NEGATIVE) mg/dL Urine Ketones Negative (NEGATIVE) mg/dL Urine Occult Blood Negative (NEGATIVE) Urine Nitrite Negative (NEGATIVE) Urine Bilirubin Negative (NEGATIVE) Urine Urobilinogen 0.2 (0.2-1.0) EU/dL Ur Leukocyte Esterase Negative (NEGATIVE) Urine RBC 0-5 (0-5) Urine WBC 0-5 (0-5) Ur Epithelial Cells Few Amorphous Sediment Occasional Urine Bacteria Occasional Urine Mucus Not seen Meds: Medications Generic Name Dose Route Start Last Admin Trade Name Freq PRN Reason Stop Dose Admin Acetaminophen 650 mg 09/29/20 20:04 Acetaminophen 325 Mg Tab PO Q4H PRN Pain (Mild 1-3)/fever Albuterol 2.5 mg 09/29/20 20:04 Albuterol 0.083% 2.5 Mg/3 Ml Neb Soln NEB Q4H PRN Shortness Of Breath/wheezing Albuterol 0 gm 09/29/20 20:04 Albuterol 8 Gm Inhaler INH Q4H PRN Wheezing Albuterol/Ipratropium 3 ml 09/29/20 20:04 Albuterol/Ipratropium 3.0-0.5 Mg/3 Ml Neb Soln NEB QID PRN Shortness Of Breath/wheezing Aspirin 81 mg 09/30/20 09:00 Aspirin 81 Mg Tab.Chew PO DAILY TARIQ Bisacodyl 5 mg 09/29/20 20:04 Bisacodyl 5 Mg Tab PO DAILY PRN Constipation Diphenhydramine HCl 25 mg 09/29/20 20:04 Diphenhydramine 25 Mg Cap PO BEDTIME PRN Insomnia Docusate Sodium 100 mg 09/29/20 20:04 Docusate Sodium 100 Mg Cap PO BID PRN Constipation Fluticasone Propionate 0 gm 09/30/20 21:00 Fluticasone Propionate Nasal Marissa 16 Gm Bottle TARA BEDTIME TARIQ Sodium Chloride 100 mls @ 3 mls/sec 09/29/20 16:00 09/29/20 16:51 Normal Saline IV 3 mls/sec ASDIRECTED TARIQ Administration Melatonin 6 mg 09/29/20 20:04 Melatonin 3 Mg Tab PO BEDTIME PRN Insomnia Mometasone Furoate/Formoterol Fumar 0 puff 09/29/20 21:00 09/29/20 22:20 Formoterol/Mometasone 200-5 Mcg 8.8 Gm Inhaler IH Not Given BEDTIME TARIQ Mometasone Furoate/Formoterol Fumar 0 puff 09/30/20 21:00 Formoterol/Mometasone 200-5 Mcg 8.8 Gm Inhaler IH BEDTIME TARIQ Morphine Sulfate 2 mg 09/29/20 20:04 Morphine 2 Mg/Ml Syringe IVPUSH Q2H PRN Pain (severe 7-10) Ondansetron HCl 4 mg 09/29/20 20:04 Ondansetron 4 Mg Tab.Dis PO Q6H PRN Nausea able to take PO Ondansetron HCl 4 mg 09/29/20 20:04 Ondansetron 4 Mg/2 Ml Sdv IV Q4H PRN Nausea/Vomiting Oxycodone HCl 5 mg 09/29/20 20:04 Oxycodone 5 Mg Tab PO Q4H PRN Pain (moderate 4-6) Discontinued Medications Generic Name Dose Route Start Last Admin Trade Name Freq PRN Reason Stop Dose Admin Aspirin 325 mg 09/29/20 17:49 09/29/20 18:47 Aspirin 325 Mg Tab.Ec PO 09/29/20 17:50 325 mg ONETIME ONE Administration Fluticasone Propionate 0 gm 09/29/20 22:15 09/29/20 22:13 Fluticasone Propionate Nasal Marissa 16 Gm Bottle TARA 2 spray BEDTIME TARIQ Administration Iopamidol 100 ml 09/29/20 16:00 09/29/20 16:52 Iopamidol 755 Mg/Ml 100 Ml Bottle IV 100 ml . DIRECTED TARIQ Administration Sodium Chloride 10 ml 09/29/20 15:48 09/29/20 16:52 Sodium Chloride 0.9% 10 Ml Syringe FLUSH 09/29/20 15:49 10 ml ONETIME ONE Administration - Re-Assessments/Exams Free Text/Narrative Re-Assessment/Exam: This is an 84-year-old male history of DVT, no longer anticoagulated, presents concerns of right-sided weakness visual changes, now resolved. On exam here he has normal vitals. He is neurologically intact for me now, although is still using a cane for ambulation upon entering the ED. His NIH stroke scale score is 0. He does have some decreased vision on acuity testing on the right at 20/70, 20/40 on the left. Screening labs obtained and negative for acute abnormality. CT and CTA of the head and neck are obtained, results are pending. His history is strongly consistent with a TIA. Plan at this point is for admission for further stroke work-up, pending imaging results revealing no lesions that require higher level of care. He has been signed out at the end of my clinical shift pending imaging results. 09/29/20 17:52 Departure - Departure Time of Disposition: 17:45 Disposition: Refer to Observation Clinical Impression: TIA (transient ischemic attack) - Discharge Information Sepsis Event Note (ED) - Evaluation Sepsis Screening Result: No Definite Risk - My Orders Last 24 Hours: My Active Orders 09/29/20 15:40 EKG 12 Lead [EK] Routine 09/29/20 16:00 Sodium Chloride 0.9% [Normal Saline] 100 ml IV ASDIRECTED - Assessment/Plan Last 24 Hours: My Active Orders 09/29/20 15:40 EKG 12 Lead [EK] Routine 09/29/20 16:00 Sodium Chloride 0.9% [Normal Saline] 100 ml IV ASDIRECTED
[2020-09-29] MEDS ORDERED: Aspirin 325 MG Tab.EC PO ONE (17:49)
--- NOTE | 2020-09-29 18:07 | CRLCT ---
DATE: 09/29/2020 CLINICAL HISTORY: Patient with right-sided weakness. TECHNIQUE: Standard helical CT image acquisition through the head and neck was performed after intravenous contrast bolus enhancement. Multiplanar reconstructed images were performed and interpreted. COMPARISON: None. FINDINGS: The origins of the great vessels from the aortic arch are patent. The origin of the right vertebral artery is patent. The origin of the left vertebral artery demonstrates moderate narrowing. The common carotid arteries are patent There is a mild (50%) stenosis at the origin of the right internal carotid artery by NASCET criteria. This is caused by non-calcified plaque with a 1.9mm residual lumen. There is plaque without stenosis at the origin of the left internal carotid artery by NASCET criteria. The rest of the cervical segments of the internal carotid arteries are patent up to their intracranial segments. The intracranial segments of the internal carotid arteries are patent. The right vertebral artery is dominant. The cervical segments of the vertebral arteries are patent. The intracranial segments of the vertebral arteries are patent. There is mild intracranial atherosclerosis in the supraclinoid segments of the internal carotid arteries bilaterally. The middle cerebral arteries are normal without aneurysm or proximal occlusion identified. The anterior cerebral arteries are normal without aneurysm or proximal occlusion identified. The anterior communicating artery is well visualized and appears normal. The basilar artery is normal without aneurysm or occlusion. The posterior cerebral arteries are normal without aneurysm or proximal occlusion. The visualized lung apices are unremarkable The thyroid gland is unremarkable. The soft tissues of the neck are unremarkable. There are degenerative changes in the cervical spine. IMPRESSION: 1. No proximal intracranial large vessel occlusion. Mild intracranial atherosclerosis in the supraclinoid segments of the internal carotid arteries bilaterally. 2. Mild (50%) stenosis at the origin of the right internal carotid artery by NASCET criteria caused by non-calcified plaque with a 1.9mm residual lumen. 3. Moderate stenosis at the origin of the non-dominant left vertebral artery. Patent right vertebral artery. Please note that all CT scans at this facility use dose modulation, iterative reconstruction, and/or weight-based dosing when appropriate to reduce radiation dose to as low as reasonably achievable. Dictated by Trell Goss MD @ 09/29/2020 11:29:[address] Trell Goss @ Sep 29 2020 11:29PM
--- NOTE | 2020-09-29 18:07 | CRLCT ---
DATE: 09/29/2020 CLINICAL HISTORY: Patient with right-sided weakness. TECHNIQUE: Standard helical CT image acquisition through the head and neck was performed after intravenous contrast bolus enhancement. Multiplanar reconstructed images were performed and interpreted. COMPARISON: None. FINDINGS: The origins of the great vessels from the aortic arch are patent. The origin of the right vertebral artery is patent. The origin of the left vertebral artery demonstrates moderate narrowing. The common carotid arteries are patent There is a mild (50%) stenosis at the origin of the right internal carotid artery by NASCET criteria. This is caused by non-calcified plaque with a 1.9mm residual lumen. There is plaque without stenosis at the origin of the left internal carotid artery by NASCET criteria. The rest of the cervical segments of the internal carotid arteries are patent up to their intracranial segments. The intracranial segments of the internal carotid arteries are patent. The right vertebral artery is dominant. The cervical segments of the vertebral arteries are patent. The intracranial segments of the vertebral arteries are patent. The middle cerebral arteries are normal without aneurysm or proximal occlusion identified. The anterior cerebral arteries are normal without aneurysm or proximal occlusion identified. The anterior communicating artery is well visualized and appears normal. The basilar artery is normal without aneurysm or occlusion. The posterior cerebral arteries are normal without aneurysm or proximal occlusion. The visualized lung apices are unremarkable The thyroid gland is unremarkable. The soft tissues of the neck are unremarkable. There are degenerative changes in the cervical spine. IMPRESSION: 1. No proximal intracranial large vessel occlusion. 2. Mild (50%) stenosis at the origin of the right internal carotid artery by NASCET criteria caused by non-calcified plaque with a 1.9mm residual lumen. 3. Moderate stenosis at the origin of the non-dominant left vertebral artery. Patent right vertebral artery. Please note that all CT scans at this facility use dose modulation, iterative reconstruction, and/or weight-based dosing when appropriate to reduce radiation dose to as low as reasonably achievable. Dictated by Trell Goss MD @ 09/29/2020 11:28:[address] Trell Goss @ Sep 29 2020 11:28PM
[2020-09-29 18:34] VITALS: PULSE 76
[2020-09-29] MEDS ORDERED: Ondansetron 4 MG Tab.DIS PO PRN (20:04)
[2020-09-29] MEDS ORDERED: Albuterol 0.083% 2.5 MG/3 ML Neb Soln NEB PRN (20:04)
[2020-09-29] MEDS ORDERED: Melatonin 3 MG Tab PO PRN (20:04)
[2020-09-29] MEDS ORDERED: Bisacodyl 5 MG Tab PO PRN (20:04)
[2020-09-29] MEDS ORDERED: Acetaminophen 325 MG Tab PO PRN (20:04)
[2020-09-29] MEDS ORDERED: oxyCODONE 5 MG Tab PO PRN (20:04)
[2020-09-29] MEDS ORDERED: diphenhydrAMINE 25 MG Cap PO PRN (20:04)
[2020-09-29] MEDS ORDERED: Morphine 2 MG/ML SYRINGE IVPUSH PRN (20:04)
[2020-09-29] MEDS ORDERED: Ondansetron 4 MG/2 ML SDV IV PRN (20:04)
[2020-09-29] MEDS ORDERED: Albuterol/Ipratropium 3.0-0.5 MG/3 ML Neb Soln NEB PRN (20:04)
[2020-09-29] MEDS ORDERED: Docusate Sodium 100 MG Cap PO PRN (20:04)
[2020-09-29] MEDS ORDERED: Albuterol 8 GM Inhaler INH PRN (20:04)
--- NOTE | 2020-09-29 20:42 | PCM.HP.2 ---
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 He reports that around 11 AM this morning he stood up from a chair and noted that the right side of his body felt weak. He notes some blurriness in the right side of his vision at this time as well. He was having some difficulty with his gait so needed to use a cane. The symptoms slowly improved. He continues to have some right-sided visual blurring and is using a cane for ambulation. He is otherwise feeling well. He has no headache. He has no history of similar symptoms in the past. He has not had any word finding difficulty or speech deficit. He has no history of stroke. No falls or trauma. Onset of Symptoms: Reports: Today Symptom Onset Date: 09/29/20 Symptom Onset Time: 11:00 Duration of Symptoms: Reports: Improving (continues right sided weakness and right vision changes) Location: Reports: Upper Extremity, Left, Lower Extremity, Right Quality: Reports: Other (weakness) Severity: Mild Improves with: Reports: None Worsens with: Reports: None Associated Symptoms: Reports: No Other Symptoms - Related Data Allergies/Adverse Reactions: Allergies Allergy/AdvReac Type Severity Reaction Status Date / Time alcohol Allergy Cannot Verified 09/29/20 15:30 Remember amoxicillin [From Augmentin] Allergy Cannot Verified 09/29/20 15:30 Remember atorvastatin Allergy Cannot Verified 09/29/20 15:30 Remember clavulanic acid Allergy Cannot Verified 09/29/20 15:30 [From Augmentin] Remember clindamycin Allergy Cannot Verified 09/29/20 15:30 Remember fish derived Allergy Cannot Verified 09/29/20 15:30 Remember montelukast [From Singulair] Allergy Cannot Verified 09/29/20 15:30 Remember niacin Allergy Cannot Verified 09/29/20 15:30 Remember pravastatin Allergy Cannot Verified 09/29/20 15:30 Remember [id number]-Ycf-Avg Reductase Allergy Cannot Verified 09/29/20 15:30 Inhibitor Remember Sulfa (Sulfonamide Allergy Cannot Verified 09/29/20 15:30 Antibiotics) Remember DUST MITE Allergy Cannot Uncoded 09/29/20 15:30 Remember MINT CHOCOLATE CHIPS Allergy Cannot Uncoded 09/29/20 15:30 Remember Home Medications: Home Meds Albuterol [Ventolin HFA] 2 puff INH Q4H PRN 11/13/16 [History] metFORMIN HCl [Metformin HCl] 500 mg PO BID 11/13/16 [History] Fluticasone Propionate [Flonase] 2 spray INH DAILY 06/21/17 [History] Fluticasone/Salmeterol [Advair 500-50] 1 inh INH DAILY 05/30/19 [History] Past Medical History HEENT History: Reports: Cataract, Impaired Vision, Other (See Below) Other HEENT History: glasses Cardiovascular History: Reports: Blood Clots/VTE/DVT, High Cholesterol, Other (See Below) Other Cardiovascular History: blood clot right leg Respiratory History: Reports: Asthma Genitourinary History: Reports: Prostate Disorder Musculoskeletal History: Reports: Arthritis Endocrine/Metabolic History: Reports: Diabetes, Type II Oncologic (Cancer) History: Reports: Prostate Dermatologic History: Reports: Other (See Below) Other Dermatologic History: dry skin - Infectious Disease History Infectious Disease History: Reports: Chicken Pox, Measles, Mumps - Past Surgical History HEENT Surgical History: Reports: Cataract Surgery, Naso-Sinus Surgery, Tonsillectomy Cardiovascular Surgical History: Reports: None Respiratory Surgical History: Reports: None GI Surgical History: Reports: Colonoscopy Male Surgical History: Reports: Prostatectomy Endocrine Surgical History: Reports: None Social & Family History - Family History Family Medical History: No Pertinent Family History - Caffeine Use Caffeine Use: Reports: Coffee - Living Situation & Occupation Living situation: Reports: 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 lives [address] in [place], [place].) H&P Review of Systems - Review of Systems: Review Of Systems: See Below General: Reports: Other (right side of body feels weak and right eye decreased vision) HEENT: Reports: Glasses, Visual Changes (right eye) Pulmonary: Reports: Other (chest tightness from asthma.) Cardiovascular: Reports: No Symptoms Gastrointestinal: Reports: No Symptoms Genitourinary: Reports: No Symptoms Musculoskeletal: Reports: No Symptoms Skin: Reports: No Symptoms Psychiatric: Reports: No Symptoms Neurological: Reports: Weakness (right side of body) Hematologic/Lymphatic: Reports: No Symptoms Immunologic: Reports: No Symptoms Exam - Exam Exam: See Below - Vital Signs Vital Signs: Last Vital Signs Temp 97.6 F 09/29/20 15:34 Pulse 76 09/29/20 18:34 Resp 18 09/29/20 18:34 BP 160/80 H 09/29/20 18:34 Pulse Ox 98 09/29/20 18:34 Weight: 150 lb - Exam Quality Assessment: DVT Prophylaxis General: Alert, Oriented, Cooperative, Other (neat and well tanned adult man, pleasant with no speech impairment noted.) HEENT: PERRLA, Hearing Intact, Mucosa Moist & [place], Nares Patent, Normal Nasal Septum, Posterior Pharynx Clear, Conjunctiva Clear, EOMI, EACs Clear, TMs Clear Neck: Supple, Trachea Midline, 2 Lungs: Clear to Auscultation, Normal Respiratory Effort Cardiovascular: Regular Rate, Regular Rhythm, Normal S1, Normal S2, Other (negative cardiac bruits noted bilateral) GI/Abdominal Exam: Normal Bowel Sounds, Soft, Non-Tender, No Organomegaly, No Distention, No Abnormal Bruit (Male) Exam: Deferred Rectal (Males) Exam: Deferred Back Exam: Normal Inspection, Full Range of Motion, NT Extremities: Normal Inspection, Normal Range of Motion, Non-Tender, No Pedal Edema, Normal Capillary Refill Peripheral Pulses: 2+: Brachial (L), Brachial (R) Skin: Warm, Dry, Intact Neurological: Cranial Nerves Intact, Reflexes Equal Bilateral, Strength Equal Bilateral, Normal Speech, Normal Tone Neuro Extensive - Mental Status: Alert, Oriented x3, Normal Mood/Affect, Normal Cognition, Memory Intact Neuro Extensive - Motor, Sensory, Reflexes: CN II-XII Intact, Normal Reflexes DTR: 2+: Patella (L), Patella (R) Psychiatric: Alert, Normal Affect, Normal Mood - Patient Data Lab Results Last 24 hrs: Laboratory Results - last 24 hr 09/29/20 09/29/20 09/29/20 Range/Units 15:50 15:50 15:50 WBC 9.7 (4.5-11.0) K/uL RBC 4.21 L (4.30-5.90) M/uL Hgb 12.6 (12.0-15.0) g/dL Hct 39.2 L (40.0-54.0) % MCV 93 (80-98) fL MCH 30 (27-31) pg MCHC 32 (32-36) % Plt Count 220 (150-400) K/uL PT 10.1 (9.5-12.0) sec INR 0.93 (0.80-1.20) Sodium 141 (140-148) mmol/L Potassium 4.3 (3.6-5.2) mmol/L Chloride 104 (100-108) mmol/L Carbon Dioxide 29 (21-32) mmol/L Anion Gap 8.2 (5.0-14.0) mmol/L BUN 23 H (7-18) mg/dL Creatinine 1.3 (0.8-1.3) mg/dL Est Cr Clr Drug Dosing 39.53 mL/min Estimated GFR (MDRD) 53 L (>60) Glucose 102 (74-106) mg/dL Calcium 8.4 L (8.5-10.1) mg/dL Total Bilirubin 0.2 (0.2-1.0) mg/dL AST 15 (15-37) U/L ALT 21 (12-78) U/L Alkaline Phosphatase 98 (46-116) U/L Total Protein 6.7 (6.4-8.2) g/dL Albumin 3.4 (3.4-5.0) g/dL Globulin 3.3 (2.3-3.5) g/dL Albumin/Globulin Ratio 1.0 L (1.2-2.2) Urine Color (YELLOW) Urine Appearance (CLEAR) Urine pH (5.0-8.0) Ur Specific [place] (1.008-1.030) Urine Protein (NEGATIVE) mg/dL Urine Glucose (UA) (NEGATIVE) mg/dL Urine Ketones (NEGATIVE) mg/dL Urine Occult Blood (NEGATIVE) Urine Nitrite (NEGATIVE) Urine Bilirubin (NEGATIVE) Urine Urobilinogen (0.2-1.0) EU/dL Ur Leukocyte Esterase (NEGATIVE) Urine RBC (0-5) Urine WBC (0-5) Ur Epithelial Cells Amorphous Sediment Urine Bacteria Urine Mucus 09/29/20 Range/Units 16:44 WBC (4.5-11.0) K/uL RBC (4.30-5.90) M/uL Hgb (12.0-15.0) g/dL Hct (40.0-54.0) % MCV (80-98) fL MCH (27-31) pg MCHC (32-36) % Plt Count (150-400) K/uL PT (9.5-12.0) sec INR (0.80-1.20) Sodium (140-148) mmol/L Potassium (3.6-5.2) mmol/L Chloride (100-108) mmol/L Carbon Dioxide (21-32) mmol/L Anion Gap (5.0-14.0) mmol/L BUN (7-18) mg/dL Creatinine (0.8-1.3) mg/dL Est Cr Clr Drug Dosing mL/min Estimated GFR (MDRD) (>60) Glucose (74-106) mg/dL Calcium (8.5-10.1) mg/dL Total Bilirubin (0.2-1.0) mg/dL AST (15-37) U/L ALT (12-78) U/L Alkaline Phosphatase (46-116) U/L Total Protein (6.4-8.2) g/dL Albumin (3.4-5.0) g/dL Globulin (2.3-3.5) g/dL Albumin/Globulin Ratio (1.2-2.2) Urine Color Yellow (YELLOW) Urine Appearance Clear (CLEAR) Urine pH 6.0 (5.0-8.0) Ur Specific [place] 1.015 (1.008-1.030) Urine Protein Negative (NEGATIVE) mg/dL Urine Glucose (UA) Negative (NEGATIVE) mg/dL Urine Ketones Negative (NEGATIVE) mg/dL Urine Occult Blood Negative (NEGATIVE) Urine Nitrite Negative (NEGATIVE) Urine Bilirubin Negative (NEGATIVE) Urine Urobilinogen 0.2 (0.2-1.0) EU/dL Ur Leukocyte Esterase Negative (NEGATIVE) Urine RBC 0-5 (0-5) Urine WBC 0-5 (0-5) Ur Epithelial Cells Few Amorphous Sediment Occasional Urine Bacteria Occasional Urine Mucus Not seen Result Diagrams: 09/29/20 15:50 09/29/20 15:50 Sepsis Event Note - Evaluation Sepsis Screening Result: No Definite Risk - Focused Exam Vital Signs: Vital Signs Temp Pulse Resp BP Pulse Ox 09/29/20 18:34 76 18 160/80 H 98 09/29/20 16:24 81 21 H 150/78 H 09/29/20 15:59 78 11 L 149/79 H 09/29/20 15:34 97.6 F 94 21 H 167/87 H 99 09/29/20 15:31 97.6 F 94 21 H 167/87 H 99 - Problem List (1) TIA (transient ischemic attack) SNOMED Code(s): 069758605 ICD Code: G45.9 - TRANSIENT CEREBRAL ISCHEMIC ATTACK, UNSPECIFIED Status: Acute Priority: High Current Visit: Yes (2) Asthma, cough variant SNOMED Code(s): 577042228 ICD Code: J45.991 - COUGH VARIANT ASTHMA Status: Acute Priority: Low Current Visit: Yes (3) Diabetes type 2, controlled SNOMED Code(s): 84992735, 210848094 ICD Code: E11.9 - TYPE 2 DIABETES MELLITUS WITHOUT COMPLICATIONS Status: Acute Priority: Low Current Visit: Yes Qualifiers: Diabetes mellitus cnmt insulin use: without half-way use Diabetes mellitus complication status: without complication Qualified Code(s): E11.9 - Type 2 diabetes mellitus without complications (4) History of deep vein thrombosis (DVT) of lower extremity SNOMED Code(s): 598133977 ICD Code: Z86.718 - PERSONAL HISTORY OF OTHER VENOUS THROMBOSIS AND EMBOLISM Status: Acute Priority: Low Current Visit: Yes Problem List Initiated/Reviewed/Updated: Yes Orders Last 24hrs: Active Orders 24 hr Category Date Time Status Cardiac Monitoring [RC] CONTINUOUS Care 09/29/20 20:04 Active Intake and Output [RC] QSHIFT Care 09/29/20 20:04 Active Neuro Check [RC] Q4HR Care 09/29/20 20:04 Active Notify Provider Vital Signs [RC] ASDIRECTED Care 09/29/20 20:04 Active Oxygen Therapy [RC] PRN Care 09/29/20 20:04 Active Pulse Oximetry [RC] PRN Care 09/29/20 20:04 Active RT Aerosol Therapy [RC] ASDIRECTED Care 09/29/20 20:04 Active Up ad [place] [RC] ASDIRECTED Care 09/29/20 20:04 Active VTE/DVT Education [RC] Per Unit Routine Care 09/29/20 20:04 Active Vital Signs [RC] Q4H Care 09/29/20 20:04 Active Consistent Carbohydrate Diet [DIET] Diet 09/29/20 Dinner Active Echo Comp w Cont [US] Urgent Exams 09/29/20 20:04 Ordered BASIC METABOLIC PANEL,BMP [CHEM] AM Lab 09/30/20 05:11 Ordered CBC WITH AUTO DIFF [HEME] AM Lab 09/30/20 05:11 Ordered Acetaminophen [TylenoL] Med 09/29/20 20:04 Active 650 mg PO Q4H PRN Albuterol [Proventil Neb Soln] Med 09/29/20 20:04 Active 2.5 mg NEB Q4H PRN Albuterol [Ventolin HFA] Med 09/29/20 20:04 Active 0 gm INH Q4H PRN Albuterol/Ipratropium [DuoNeb 3.0-0.5 MG/3 ML] Med 09/29/20 20:04 Active 3 ml NEB QID PRN Aspirin Med 09/30/20 09:00 Active 81 mg PO DAILY Docusate Sodium [Colace] Med 09/29/20 20:04 Active 100 mg PO BID PRN Fluticasone Propionate [Flonase] Med 09/30/20 09:00 Active 0 gm TARA DAILY Fluticasone/Salmeterol [Advair 500-50] Med 09/30/20 09:00 Pending 1 inh INH DAILY Melatonin Med 09/29/20 20:04 Active 6 mg PO BEDTIME PRN Morphine Med 09/29/20 20:04 Active 2 mg IVPUSH Q2H PRN Ondansetron [Zofran ODT] Med 09/29/20 20:04 Active 4 mg PO Q6H PRN Ondansetron [Zofran] Med 09/29/20 20:04 Active 4 mg IV Q4H PRN Sodium Chloride 0.9% [Normal Saline] 100 ml Med 09/29/20 16:00 Active IV ASDIRECTED bisacodyL [Dulcolax] Med 09/29/20 20:04 Active 5 mg PO DAILY PRN diphenhydrAMINE [Benadryl] Med 09/29/20 20:04 Active 25 mg PO BEDTIME PRN oxyCODONE Med 09/29/20 20:04 Active 5 mg PO Q4H PRN Resuscitation Status Routine Resus Stat 09/29/20 19:44 Ordered EKG 12 Lead [EK] Routine Ther 09/29/20 15:40 Stop Req Medication Orders Acetaminophen (Acetaminophen 325 Mg Tab) 650 mg PO Q4H PRN PRN Reason: Pain (Mild 1-3)/fever Albuterol (Albuterol 0.083% 2.5 Mg/3 Ml Neb Soln) 2.5 mg NEB Q4H PRN PRN Reason: Shortness Of Breath/wheezing Albuterol (Albuterol 8 Gm Inhaler) 0 gm INH Q4H PRN PRN Reason: Wheezing Albuterol/Ipratropium (Albuterol/Ipratropium 3.0-0.5 Mg/3 Ml Neb Soln) 3 ml NEB QID PRN PRN Reason: Shortness Of Breath/wheezing Aspirin (Aspirin 81 Mg Tab.Chew) 81 mg PO DAILY TARIQ Bisacodyl (Bisacodyl 5 Mg Tab) 5 mg PO DAILY PRN PRN Reason: Constipation Diphenhydramine HCl (Diphenhydramine 25 Mg Cap) 25 mg PO BEDTIME PRN PRN Reason: Insomnia Docusate Sodium (Docusate Sodium 100 Mg Cap) 100 mg PO BID PRN PRN Reason: Constipation Fluticasone Propionate (Fluticasone Propionate Nasal [place] 16 Gm Bottle) 0 gm TARA DAILY [facility] Sodium Chloride (Normal Saline) 100 mls @ 3 mls/sec IV ASDIRECTED [facility] Last Admin: 09/29/20 16:51 Dose: 3 mls/sec Documented by: THELASH Melatonin (Melatonin 3 Mg Tab) 6 mg PO BEDTIME PRN PRN Reason: Insomnia Morphine Sulfate (Morphine 2 Mg/Ml Syringe) 2 mg IVPUSH Q2H PRN PRN Reason: Pain (severe 7-10) Non-Formulary Medication (Fluticasone/Salmeterol [Advair 500-50]) 1 inh INH DAILY TARIQ Ondansetron HCl (Ondansetron 4 Mg Tab.Dis) 4 mg PO Q6H PRN PRN Reason: Nausea able to take PO Ondansetron HCl (Ondansetron 4 Mg/2 Ml Sdv) 4 mg IV Q4H PRN PRN Reason: Nausea/Vomiting Oxycodone HCl (Oxycodone 5 Mg Tab) 5 mg PO Q4H PRN PRN Reason: Pain (moderate 4-6) Assessment/Plan Comment:: Assessment/Plan Comment:: WEAKNESS ASSESSMENT AND PLAN TIA- experienced weakness at 11 am. 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 He came to ER via POV. Labs and CT scan of Head for acute process. will admit OBS for further evaluation. -IV saline lock -neuro check every 34 hours -telemetry -heart Echo -declines MRI of brain due to anxiety in closed spaces -repeat labs in am - CBC, BMP History of lower leg DVT- reports took "blood thinner" for one year then baby aspirin, then just stopped taking medication. -restart baby asa Asthma -Supplemental oxygen as needed -Nebulized albuterol and Duo Nebs prn Diabetes Type 2 - Metformin and diet control, last HgA1c 6.4 -consistent carb diet -Blood glucose testing before meals and at bedtime MAINTENANCE ISSUES -DVT prophylaxis- baby ASA daily -GI prophylaxis- PPI -Siddiqui catheter; not indicated -Nutrition; consistent carb diet -Nicotine dependence -not required CODE STATUS-FULL CODE ADMISSION STATUS-this patient will be admitted to observation status, expect no more than a one night hospital stay for evaluation and management of problems as outlined above. DISPOSITION-anticipate discharge to home after the hospital stay. PRIMARY CARE PROVIDER-Dr. Gorman HOSPITALIST Dr. Das - Mortality Measure Prognosis:: Good - Mortality Measure Prognosis:: Good
[2020-09-29] MEDS ORDERED: Formoterol/Mometasone 200-5 MCG 8.8 GM Inhaler IH SCH (21:00)
[2020-09-29] MEDS ORDERED: Fluticasone Propionate Nasal Spray 16 GM Bottle NAS SCH (22:15)
[2020-09-30 08:33] VITALS: BP 133/62
[2020-09-30] MEDS ORDERED: Aspirin 81 MG Tab.Chew PO SCH (09:00)
[2020-09-30] MEDS ORDERED: Fluticasone Propionate Nasal Spray 16 GM Bottle NAS SCH ×3 (09:00→21:00)
--- NOTE | 2020-09-30 09:34 | PCM.DCSUM1 ---
Discharge Summary - Hospital Course Brief History: 84-year-old male with history of prostate cancer, well-controlled type 2 diabetes mellitus and cough variant asthma who presented with right-sided weakness and blurry vision. He was admitted for expedited work-up of presumed TIA. 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 Diabetes mellitus complication status: without complication Qualified Code(s): E11.9 - Type 2 diabetes mellitus without complications (3) 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 His symptoms had essentially resolved by the time that he was evaluated in the emergency room. Laboratory studies were unremarkable. A CT angiogram of the head and neck was performed. This did show about 50% stenosis of the right internal carotid artery as well as the left vertebral artery which was the nondominant artery. He was admitted for observation and expedited work-up. Overnight there were no abnormalities noted on telemetry and he remained in a sinus rhythm. An echocardiogram was obtained the next morning and showed normal cardiac function with no abnormalities. We did discuss an MRI but he reports that he is not able to complete these because of claustrophobia. We did review statin medications but he has been intolerant to these medications in the past and does not willing to deal with side effects again. He was agreeable to starting a low-dose aspirin. We did review modifiable risk factors including diabetes control, blood pressure control, cholesterol medication as well as antiplatelet medications. His diabetes is currently well controlled. The other medications/interventions were discussed above. He has at baseline with no deficits at this time. He is stable and safe for discharge. He will follow up with his primary care in 1 to 2 weeks. - Patient Instructions Diet: Diabetic Diet Activity: As Tolerated Driving: May Drive Today Showering/Bathing: May Shower Other/Special Instructions: You were in the hospital for evaluation of a transient ischemic attack (TIA). We did perform an extensive work-up including a CT angiogram of your head and neck. This showed about 50% stenosis of the right internal carotid artery as well as about 50% stenosis of the left vert ebral artery. Neither of these lesions are large enough to need intervention at this time. We also performed an echocardiogram which showed normal cardiac function with no abnormalities. I would recommend that you take 81 mg of aspirin daily to help reduce your risk of stroke. A cholesterol-lowering medication such as a statin would also be advisable in this situation but you have been intolerant to these medications in the past. I would recommend that you follow-up with Dr. Trev Gorman in 1 to 2 weeks to review this episode and see if there are any additional difficulties after the hospital stay. - Discharge Plan Prescriptions/Med Rec: Aspirin [Halfprin] 81 mg PO DAILY #90 tab.ec Home Medications: Home Meds Albuterol [Ventolin HFA] 2 puff INH Q4H PRN 11/13/16 [History] metFORMIN HCl [Metformin HCl] 500 mg PO BID 11/13/16 [History] Fluticasone Propionate [Flonase] 2 spray INH DAILY 06/21/17 [History] Fluticasone/Salmeterol [Advair 500-50] 1 inh INH DAILY 05/30/19 [History] Aspirin [Halfprin] 81 mg PO DAILY #90 tab.ec 09/30/20 [Rx] Patient Handouts: Transient Ischemic Attack Referrals: Trev Gorman MD [Primary Care Provider] - (f/u in 1-2 weeks -follow-up hospital stay for TIA) - Discharge Summary/Plan Comment DC Time >30 min.: No - Patient Data Vitals - Most Recent: Last Vital Signs Temp 36.3 C 09/30/20 08:33 Pulse 76 09/29/20 18:34 Resp 20 09/30/20 08:33 BP 133/62 09/30/20 08:33 Pulse Ox 96 09/30/20 08:33 Weight - Most Recent: 69.989 kg I&O - Last 24 hours: Intake & Output 09/29/20 09/30/20 09/30/20 22:59 06:59 14:59 Output Total 550 125 Balance -550 -125 Lab Results - Last 24 hrs: Laboratory Results - last 24 hr 09/29/20 09/29/20 09/29/20 Range/Units 15:50 15:50 15:50 WBC 9.7 (4.5-11.0) K/uL RBC 4.21 L (4.30-5.90) M/uL Hgb 12.6 (12.0-15.0) g/dL Hct 39.2 L (40.0-54.0) % MCV 93 (80-98) fL MCH 30 (27-31) pg MCHC 32 (32-36) % Plt Count 220 (150-400) K/uL Neut % (Auto) (36-66) % Lymph % (Auto) (24-44) % Gregory % (Auto) (2-6) % Eos % (Auto) (2-4) % Baso % (Auto) (0-1) % PT 10.1 (9.5-12.0) sec INR 0.93 (0.80-1.20) Sodium 141 (140-148) mmol/L Potassium 4.3 (3.6-5.2) mmol/L Chloride 104 (100-108) mmol/L Carbon Dioxide 29 (21-32) mmol/L Anion Gap 8.2 (5.0-14.0) mmol/L BUN 23 H (7-18) mg/dL Creatinine 1.3 (0.8-1.3) mg/dL Est Cr Clr Drug Dosing 39.53 mL/min Estimated GFR (MDRD) 53 L (>60) Glucose 102 (74-106) mg/dL Calcium 8.4 L (8.5-10.1) mg/dL Total Bilirubin 0.2 (0.2-1.0) mg/dL AST 15 (15-37) U/L ALT 21 (12-78) U/L Alkaline Phosphatase 98 (46-116) U/L Total Protein 6.7 (6.4-8.2) g/dL Albumin 3.4 (3.4-5.0) g/dL Globulin 3.3 (2.3-3.5) g/dL Albumin/Globulin Ratio 1.0 L (1.2-2.2) Urine Color (YELLOW) Urine Appearance (CLEAR) Urine pH (5.0-8.0) Ur Specific [place] (1.008-1.030) Urine Protein (NEGATIVE) mg/dL Urine Glucose (UA) (NEGATIVE) mg/dL Urine Ketones (NEGATIVE) mg/dL Urine Occult Blood (NEGATIVE) Urine Nitrite (NEGATIVE) Urine Bilirubin (NEGATIVE) Urine Urobilinogen (0.2-1.0) EU/dL Ur Leukocyte Esterase (NEGATIVE) Urine RBC (0-5) Urine WBC (0-5) Ur Epithelial Cells Amorphous Sediment Urine Bacteria Urine Mucus 09/29/20 09/30/20 09/30/20 Range/Units 16:44 05:30 05:30 WBC 9.2 (4.5-11.0) K/uL RBC 4.20 L (4.30-5.90) M/uL Hgb 12.9 (12.0-15.0) g/dL Hct 39.1 L (40.0-54.0) % MCV 93 (80-98) fL MCH 31 (27-31) pg MCHC 33 (32-36) % Plt Count 217 (150-400) K/uL Neut % (Auto) 67.0 H (36-66) % Lymph % (Auto) 16.7 L (24-44) % Gregory % (Auto) 9.5 H (2-6) % Eos % (Auto) 6.3 H (2-4) % Baso % (Auto) 0.5 (0-1) % PT (9.5-12.0) sec INR (0.80-1.20) Sodium 143 (140-148) mmol/L Potassium 4.7 (3.6-5.2) mmol/L Chloride 106 (100-108) mmol/L Carbon Dioxide 28 (21-32) mmol/L Anion Gap 9.4 (5.0-14.0) mmol/L BUN 23 H (7-18) mg/dL Creatinine 1.3 (0.8-1.3) mg/dL Est Cr Clr Drug Dosing 39.53 mL/min Estimated GFR (MDRD) 53 L (>60) Glucose 99 (74-106) mg/dL Calcium 8.5 (8.5-10.1) mg/dL Total Bilirubin (0.2-1.0) mg/dL AST (15-37) U/L ALT (12-78) U/L Alkaline Phosphatase (46-116) U/L Total Protein (6.4-8.2) g/dL Albumin (3.4-5.0) g/dL Globulin (2.3-3.5) g/dL Albumin/Globulin Ratio (1.2-2.2) Urine Color Yellow (YELLOW) Urine Appearance Clear (CLEAR) Urine pH 6.0 (5.0-8.0) Ur Specific [place] 1.015 (1.008-1.030) Urine Protein Negative (NEGATIVE) mg/dL Urine Glucose (UA) Negative (NEGATIVE) mg/dL Urine Ketones Negative (NEGATIVE) mg/dL Urine Occult Blood Negative (NEGATIVE) Urine Nitrite Negative (NEGATIVE) Urine Bilirubin Negative (NEGATIVE) Urine Urobilinogen 0.2 (0.2-1.0) EU/dL Ur Leukocyte Esterase Negative (NEGATIVE) Urine RBC 0-5 (0-5) Urine WBC 0-5 (0-5) Ur Epithelial Cells Few Amorphous Sediment Occasional Urine Bacteria Occasional Urine Mucus Not seen Med Orders - Current: Current Medications Acetaminophen (Acetaminophen 325 Mg Tab) 650 mg PO Q4H PRN PRN Reason: Pain (Mild 1-3)/fever Albuterol (Albuterol 0.083% 2.5 Mg/3 Ml Neb Soln) 2.5 mg NEB Q4H PRN PRN Reason: Shortness Of Breath/wheezing Albuterol (Albuterol 8 Gm Inhaler) 0 gm INH Q4H PRN PRN Reason: Wheezing Albuterol/Ipratropium (Albuterol/Ipratropium 3.0-0.5 Mg/3 Ml Neb Soln) 3 ml NEB QID PRN PRN Reason: Shortness Of Breath/wheezing Aspirin (Aspirin 81 Mg Tab.Chew) 81 mg PO DAILY [facility] Last Admin: 09/30/20 08:33 Dose: 81 mg Documented by: Bisacodyl (Bisacodyl 5 Mg Tab) 5 mg PO DAILY PRN PRN Reason: Constipation Diphenhydramine HCl (Diphenhydramine 25 Mg Cap) 25 mg PO BEDTIME PRN PRN Reason: Insomnia Docusate Sodium (Docusate Sodium 100 Mg Cap) 100 mg PO BID PRN PRN Reason: Constipation Fluticasone Propionate (Fluticasone Propionate Nasal [place] 16 Gm Bottle) 0 gm TARA BEDTIME [facility] Sodium Chloride (Normal Saline) 100 mls @ 3 mls/sec IV ASDIRECTED [facility] Last Admin: 09/29/20 16:51 Dose: 3 mls/sec Documented by: Melatonin (Melatonin 3 Mg Tab) 6 mg PO BEDTIME PRN PRN Reason: Insomnia Mometasone Furoate/Formoterol Fumar (Formoterol/Mometasone 200-5 Mcg 8.8 Gm Inhaler) 0 puff IH BEDTIME [facility] Last Admin: 09/29/20 22:20 Dose: Not Given Documented by: Mometasone Furoate/Formoterol Fumar (Formoterol/Mometasone 200-5 Mcg 8.8 Gm Inhaler) 0 puff IH BEDTIME [facility] Morphine Sulfate (Morphine 2 Mg/Ml Syringe) 2 mg IVPUSH Q2H PRN PRN Reason: Pain (severe 7-10) Ondansetron HCl (Ondansetron 4 Mg Tab.Dis) 4 mg PO Q6H PRN PRN Reason: Nausea able to take PO Ondansetron HCl (Ondansetron 4 Mg/2 Ml Sdv) 4 mg IV Q4H PRN PRN Reason: Nausea/Vomiting Oxycodone HCl (Oxycodone 5 Mg Tab) 5 mg PO Q4H PRN PRN Reason: Pain (moderate 4-6) Discontinued Medications Aspirin (Aspirin 325 Mg Tab.Ec) 325 mg PO ONETIME ONE Stop: 09/29/20 17:50 Last Admin: 09/29/20 18:47 Dose: 325 mg Documented by: Fluticasone Propionate (Fluticasone Propionate Nasal [place] 16 Gm Bottle) 0 gm TARA BEDTIME [facility] Last Admin: 09/29/20 22:13 Dose: 2 spray Documented by: Iopamidol (Iopamidol 755 Mg/Ml 100 Ml Bottle) 100 ml IV . DIRECTED [facility] Last Admin: 09/29/20 16:52 Dose: 100 ml Documented by: Sodium Chloride (Sodium Chloride 0.9% 10 Ml Syringe) 10 ml FLUSH ONETIME ONE Stop: 09/29/20 15:49 Last Admin: 09/29/20 16:52 Dose: 10 ml Documented by:
[2020-09-30] MEDS ORDERED: Formoterol/Mometasone 200-5 MCG 8.8 GM Inhaler IH SCH (21:00)
== END 2020-09-30 10:09 | disposition home or self-care (01) ==
LOC: JP.ED 15:13 → JP.ICU 19:42
PROVIDERS: ADMIT Internal Medicine; ATTEND Internal Medicine
DX: G45.9 Transient cerebral ischemic attack, unspecified (principal); J45.991 Cough variant asthma; E78.00 Pure hypercholesterolemia, unspecified; E11.9 Type 2 diabetes mellitus without complications; Z88.8 Allergy status to other drugs, medicaments and biological substances; Z91.018 Allergy to other foods; Z88.2 Allergy status to sulfonamides; Z88.1 Allergy status to other antibiotic agents; Z91.013 Allergy to seafood; Z79.899 Other long term (current) drug therapy; Z79.84 Long term (current) use of oral hypoglycemic drugs; Z98.890 Other specified postprocedural states; Z86.718 Personal history of other venous thrombosis and embolism
CPT/HCPCS: 36415; 70496; 70498; 80048; 80053; 81001; 85025; 85027; 85610; 93005; 94762; 99285; A9270; C8929; G0378; Q9967

== ENCOUNTER 2021-03-15 11:01 | Emergency (ER) | payer MEDICARE, BC ==
[2021-03-15 13:31] VITALS: BP 165/85; PULSE 85
--- NOTE | 2021-03-15 15:33 | EDM.PDOC ---
ED HPI GENERAL MEDICAL PROBLEM - General Chief Complaint: General Stated Complaint: KNEE,HAND,SHOULDER,CHEST PAIN Time Seen by Provider: 03/15/21 15:33 Source of Information: Reports: Patient, RN Notes Reviewed History Limitations: Reports: No Limitations - History of Present Illness INITIAL COMMENTS - FREE TEXT/NARRATIVE: Patient presents today for complaints of pain to bilateral shoulders, elbows and legs. He states this has been an ongoing issues for august months. He has been to his primary, has taken doxycycline this past summer and recently taken prednisone. He states when he stopped use of prednisone the pain became much worse. He reports limited use of NSAIDs due to his kidneys and diabetes mellitus. He denies any recent injury, trauma, fever, chills, nausea, vomiting, change in bowel/bladder or other concerns. Bilateral Shoulder Pain Score (Numeric/FACES): 6 - Related Data Allergies Allergy/AdvReac Type Severity Reaction Status Date / Time alcohol Allergy Unknown Cannot Verified 03/15/21 11:30 Remember amoxicillin [From Augmentin] Allergy Unknown Cannot Verified 03/15/21 11:30 Remember atorvastatin Allergy Unknown Cannot Verified 03/15/21 11:30 Remember clavulanic acid Allergy Unknown Cannot Verified 03/15/21 11:30 [From Augmentin] Remember clindamycin Allergy Unknown Cannot Verified 03/15/21 11:30 Remember fish derived Allergy Unknown Cannot Verified 03/15/21 11:30 Remember montelukast [From Singulair] Allergy Unknown Cannot Verified 03/15/21 11:30 Remember niacin Allergy Unknown Cannot Verified 03/15/21 11:30 Remember pravastatin Allergy Unknown Cannot Verified 03/15/21 11:30 Remember Kqmjlcb-TFS-AcL Reductase Allergy Unknown Cannot Verified 03/15/21 11:30 Inhibitor Remember [Dpnlrhu-Rvf-Pjh Reductase Inhibitor] Sulfa (Sulfonamide Allergy Unknown Cannot Verified 03/15/21 11:30 Antibiotics) Remember DUST MITE Allergy Unknown Cannot Uncoded 03/15/21 11:30 Remember MINT CHOCOLATE CHIPS Allergy Unknown Cannot Uncoded 03/15/21 11:30 Remember Home Meds: Home Meds Albuterol [Ventolin HFA] 2 puff INH Q4H PRN 11/13/16 [History] metFORMIN HCl [Metformin HCl] 500 mg PO BID 11/13/16 [History] Fluticasone Propionate [Flonase] 2 spray INH DAILY 06/21/17 [History] Fluticasone/Salmeterol [Advair 500-50] 1 inh INH DAILY 05/30/19 [History] Aspirin [Halfprin] 81 mg PO DAILY #90 tab.ec 09/30/20 [Rx] Past Medical History HEENT History: Reports: Cataract, Impaired Vision, Other (See Below) Other HEENT History: glasses Cardiovascular History: Reports: Blood Clots/VTE/DVT, High Cholesterol, Other (See Below) Other Cardiovascular History: blood clot right leg Respiratory History: Reports: Asthma Genitourinary History: Reports: Prostate Disorder Musculoskeletal History: Reports: Arthritis Neurological History: Reports: TIA Endocrine/Metabolic History: Reports: Diabetes, Type II Oncologic (Cancer) History: Reports: Prostate Dermatologic History: Reports: Other (See Below) Other Dermatologic History: dry skin - Infectious Disease History Infectious Disease History: Reports: Chicken Pox, Measles, Mumps - Past Surgical History HEENT Surgical History: Reports: Cataract Surgery, Naso-Sinus Surgery, Tonsillectomy Cardiovascular Surgical History: Reports: None Respiratory Surgical History: Reports: None GI Surgical History: Reports: Colonoscopy Male Surgical History: Reports: Prostatectomy Endocrine Surgical History: Reports: None Social & Family History - Family History Family Medical History: No Pertinent Family History - Tobacco Use Tobacco Use Status *Q: Never Tobacco User - Caffeine Use Caffeine Use: Reports: Coffee - Recreational Drug Use Recreational Drug Use: No - Living Situation & Occupation Living situation: Reports: 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 lives [address] in [place], [place].) ED ROS GENERAL - Review of Systems Review Of Systems: See Below Constitutional: Reports: No Symptoms HEENT: Reports: No Symptoms Respiratory: Reports: No Symptoms Cardiovascular: Reports: No Symptoms Endocrine: Reports: No Symptoms GI/Abdominal: Reports: No Symptoms : Reports: No Symptoms Musculoskeletal: Reports: Shoulder Pain (bilateral pain ), Leg Pain, Joint Pain (bilateral elbows aching pain worse at night. Prednisone improved pain. ) ED EXAM, GENERAL - Physical Exam Exam: See Below Exam Limited By: No Limitations General Appearance: Alert, WD/WN, No Apparent Distress Eye Exam: Bilateral Eye: Normal Inspection, PERRL Ears: Normal External Exam, Normal Canal, Hearing Grossly Normal, Normal TMs Throat/Mouth: Normal Inspection, Normal Lips, Normal Gums, Normal Oropharynx, Normal Voice, No Airway Compromise Head: Atraumatic, Normocephalic Neck: Normal Inspection, Supple, Non-Tender, Full Range of Motion. No: Lymphadenopathy (R), Lymphadenopathy (L) Respiratory/Chest: No Respiratory Distress, Lungs Clear, Normal Breath Sounds, No Accessory Muscle Use, Chest Non-Tender. No: Crackles, Rales, Rhonchi, Wheezing, Stridor, Retractions Cardiovascular: Normal Peripheral Pulses, Regular Rate, Rhythm, No Edema, No Gallop, No Murmur, No Rub Peripheral Pulses: 4+: Radial (L), Radial (R) GI/Abdominal: Normal Bowel Sounds, Soft, Non-Tender, No Organomegaly, No Distention. No: Guarding, Rigid, Rebound, Tender Back Exam: Normal Inspection, Full Range of Motion. No: CVA Tenderness (R), CVA Tenderness (L), Muscle Spasm, Paraspinal Tenderness, Vertebral Tenderness Extremities: Normal Inspection, No Pedal Edema, Normal Capillary Refill, Limited Range of Motion (to bilateral shoulders with abduction. No deformities noted). No: Joint Swelling, Bib's Sign (negative), Increased Warmth, Pallor Neurological: Alert, Oriented, Normal Cognition, Normal Gait, Normal Reflexes, No Motor/Sensory Deficits Psychiatric: Normal Affect, Normal Mood Skin Exam: Warm, Dry, Intact, Normal Color, No Rash Lymphatic: No Adenopathy Course - Vital Signs Last Recorded V/S: Last Vital Signs Temp 36.6 C 03/15/21 11:23 Pulse 85 03/15/21 13:30 Resp 18 03/15/21 11:23 BP 165/85 H 03/15/21 13:30 Pulse Ox 97 03/15/21 13:30 - Re-Assessments/Exams Free Text/Narrative Re-Assessment/Exam: Discussed patient exam, history with him and most likely aspect that he is suffering from arthritis, could be an inflammatory type. He is advised to follow up with Dr. Gorman in the next week for recheck and plan. He may benefit from seeing a center sales and service associate. We will do a short course of prednisone and provide limited tramadol for pain. Patient in agreement with plan, all his questions were answered. Departure - Departure Time of Disposition: 15:59 Disposition: DC[facility] 05 Condition: Good Clinical Impression: Arthritis - Discharge Information Instructions: Arthritis, Uswr-ia-Otla Referrals: Trev Gorman MD [Primary Care Provider] - Forms: ED Department Discharge Additional Instructions: You have been evaluated and treated for joint pain. Use of prednisone in the past has helped. Take prednisone as directed. You may also try use of tylenol arthritis (acetaminophen) 500mg tablets, take 2 tablets three times a day for pain. You can take tramadol 1 tablet at night to see if this helps you sleep. Follow up with Dr. Gorman in 7 to 10 days for follow up and possibly a rheumatology referral. Return for any worsening, issues or concerns. Sepsis Event Note (ED) - Evaluation Sepsis Screening Result: No Definite Risk - Focused Exam Vital Signs: Vital Signs Temp Pulse Resp BP Pulse Ox 03/15/21 13:30 85 165/85 H 97 03/15/21 11:23 36.6 C 80 18 145/75 H 98 - Assessment/Plan Assessment:: Arthritis Plan: Patient evaluated and treated for joint pain. Use of prednisone in the past has helped. Take prednisone as directed. He may also try use of tylenol arthritis (acetaminophen) 500mg tablets, take 2 tablets three times a day for pain. He can take tramadol 1 tablet at night to see if this helps with sleep. Follow up with Dr. Gorman in 7 to 10 days for follow up and possibly a rheumatology referral. Return for any worsening, issues or concerns.
== END 2021-03-15 16:26 | disposition designated cancer center or children's hospital (05) ==
LOC: JP.ED 11:01
DX: M19.011 Primary osteoarthritis, right shoulder (principal); M19.012 Primary osteoarthritis, left shoulder; E78.00 Pure hypercholesterolemia, unspecified; E11.9 Type 2 diabetes mellitus without complications; Z88.0 Allergy status to penicillin; Z88.1 Allergy status to other antibiotic agents; Z88.2 Allergy status to sulfonamides; Z91.013 Allergy to seafood; Z88.8 Allergy status to other drugs, medicaments and biological substances; Z79.82 Long term (current) use of aspirin; Z79.84 Long term (current) use of oral hypoglycemic drugs; Z86.73 Personal history of transient ischemic attack (TIA), and cerebral infarction without residual deficits
CPT/HCPCS: 99283

== ENCOUNTER 2023-04-06 12:23 | Observation (INO) | payer BC, MEDICARE, OTHER ==
[2023-04-06 13:38] LABS: BASOPHILS ABSOLUTE AUTO 0.09 K/uL (0.00-0.10); BASOPHILS PERCENT AUTO 0.8 % (0.1-1.3); EOSINOPHILS ABSOLUTE AUTO 0.42 K/uL (0.00-0.40); EOSINOPHILS PERCENT AUTO 3.9 % (0.0-5.4); IMMATURE GRAN ABSOLUTE AUTO 0.06 K/uL (0.00-0.23); IMMATURE GRAN PERCENT AUTO 0.6 % (0.0-0.7); LYMPHOCYTES ABSOLUTE AUTO 1.47 K/uL (0.8-3.3); LYMPHOCYTES PERCENT AUTO 13.7 % (11.4-47.7); MEAN CORPUSCULAR HGB CONC 34.1 g/dL (31.6-35.5); MEAN CORPUSCULAR VOLUME 90.7 fL (81.4-99.0); MONOCYTES ABSOLUTE AUTO 1.16 K/uL (0.20-0.90); MONOCYTES PERCENT AUTO 10.8 % (3.3-12.6); NEUTROPHILS ABSOLUTE AUTO 7.55 K/uL (1.0-7.6); NEUTROPHILS PERCENT AUTO 70.2 % (40.0-78.1); PLATELET COUNT,PLT 225 K/uL (130-375); RED BLOOD CELL COUNT 4.52 M/uL (4.14-5.76); WHITE BLOOD CELL COUNT,WBC 10.8 K/uL (3.2-11.0)
[2023-04-06 14:01] LABS: ALANINE AMINOTRANSFERASE,ALT 8 U/L (12-78); ALBUMIN 3.6 g/dL (3.4-5.0); ALKALINE PHOSPHATASE 74 U/L (46-116); ASPARTATE AMNIOTRANSFERASE,AST 14 U/L (15-37); BILIRUBIN TOTAL 0.4 mg/dL (0.2-1.0); BLOOD UREA NITROGEN,BUN 26 mg/dL (7-18); CALCIUM 8.8 mg/dL (8.5-10.1); CARBON DIOXIDE,CO2 28 mmol/L (21-32); CHLORIDE,CL 103 mmol/L (100-108); CREATININE 1.5 mg/dL (0.8-1.3); EST CRCL DRUG DOSING (CG) 31.91 mL/min; ESTIMATED GFR 45 mL/min (>60); GLUCOSE RANDOM 175 mg/dL (74-106); POTASSIUM,K 4.2 mmol/L (3.6-5.2); PROTEIN TOTAL,TP 7.3 g/dL (6.4-8.2); SODIUM,NA 138 mmol/L (140-148); TROPONIN I HIGH SENSITIVITY 12.4 pg/mL (<=60.3)
[2023-04-06 14:03] LABS: ANION GAP 11.2 mmol/L (5.0-14.0)
[2023-04-06 17:02] LABS: BILIRUBIN,URINE NEGATIVE (NEGATIVE); COLOR,URINE YELLOW (YELLOW); GLUCOSE,URINE 500 mg/dL (NEGATIVE); KETONES,URINE NEGATIVE (NEGATIVE); LEUKOCYTE ESTERASE,URINE NEGATIVE (NEGATIVE); NITRITE,URINE NEGATIVE (NEGATIVE); OCCULT BLOOD,URINE NEGATIVE (NEGATIVE); PH,URINE 5.5 (5.0-8.0); PROTEIN,URINE 100 mg/dL (NEGATIVE); UROBILINOGEN,URINE 0.2 EU/dL (0.2-1.0)
[2023-04-06 17:08] LABS: AMORPHOUS SEDIMENT,URINE NOT SEEN; APPEARANCE,URINE SLIGHTLY CLOUDY (CLEAR); BACTERIA,URINE MANY; EPITHELIAL CELLS,URINE NOT SEEN; MUCUS,URINE NOT SEEN; RBC,URINE 0-5 (0-5); WBC,URINE 0-5 (0-5)
[2023-04-06] MEDS ORDERED: Clopidogrel 75 MG Tab PO ONE (17:45)
[2023-04-06] MEDS ORDERED: Sodium Chloride 0.9% 10 ML Syringe FLUSH PRN (17:50)
[2023-04-06] MEDS ORDERED: Sodium Chloride 0.9% 1,000 ML IV SCH (18:00)
[2023-04-06] MEDS ORDERED: Sodium Chloride 0.9% 100 ML IV SCH (18:30)
[2023-04-06] MEDS ORDERED: Iopamidol 755 Mg/ML 100 ML Bottle IV SCH (18:30)
[2023-04-06 19:04] LABS: CORONAVIRUS COVID-19 NAA NEGATIVE (NEGATIVE); INFLUENZA A NAA NEGATIVE (NEGATIVE); INFLUENZA B NAA NEGATIVE (NEGATIVE); RESPIRATORY SYNCYTIAL VIR NAA NEGATIVE (NEGATIVE)
[2023-04-06] MEDS ORDERED: Ondansetron 4 MG Tab.DIS PO PRN (19:38)
[2023-04-06] MEDS ORDERED: Ondansetron 4 MG/2 ML SDV IV PRN (19:38)
[2023-04-06] MEDS ORDERED: Magnesium Hydroxide 400 MG/5 ML Susp 30 ML Cup PO PRN (19:38)
[2023-04-06] MEDS ORDERED: Melatonin 3 MG Tab PO PRN (19:38)
[2023-04-06] MEDS ORDERED: Sennosides/Docusate Sodium 50-8.6 MG Tab PO PRN (19:38)
[2023-04-06] MEDS ORDERED: Acetaminophen 325 MG Tab PO PRN (19:38)
[2023-04-06] MEDS ORDERED: Sodium Chloride 0.9% 1,000 ML IV ONE (19:48)
[2023-04-06] MEDS ORDERED: Enoxaparin 40 MG/0.4 ML Syringe SUBCUT SCH (21:00)
[2023-04-07] MEDS ORDERED: metFORMIN 500 MG Tab PO SCH (08:00)
[2023-04-07] MEDS ORDERED: Aspirin 81 MG Tab.EC PO SCH (09:00)
[2023-04-07] MEDS ORDERED: Clopidogrel 75 MG Tab PO SCH (09:00)
[2023-04-07] MEDS ORDERED: METFORMIN 500 MG PO SCH (17:00)
[2023-04-07 17:25] VITALS: BP 143/80; PULSE 81
== END 2023-04-07 18:31 | disposition home health service (06) ==
LOC: JP.ED 12:23 → JP.ICU 18:41
PROVIDERS: ADMIT Registered Nurse; ATTEND Hospitalist
DX: I63.9 Cerebral infarction, unspecified (principal); E11.22 Type 2 diabetes mellitus with diabetic chronic kidney disease; N18.32 Chronic kidney disease, stage 3b; E78.00 Pure hypercholesterolemia, unspecified; J45.909 Unspecified asthma, uncomplicated; Z20.822 Contact with and (suspected) exposure to COVID-19; Z79.84 Long term (current) use of oral hypoglycemic drugs; Z79.82 Long term (current) use of aspirin; Z86.718 Personal history of other venous thrombosis and embolism; Z90.89 Acquired absence of other organs; Z79.02 Long term (current) use of antithrombotics/antiplatelets; Z79.899 Other long term (current) drug therapy
CPT/HCPCS: 0241U; 36415; 70450; 70496; 70498; 70551; 80053; 81001; 83605; 84484; 85025; 93005; 93306; 96372; 97161; 97167; 97530; 97535; 99223; 99238; 99285; A9270; G0378; J1650; J3490; J7030; Q9967

== ENCOUNTER 2024-04-13 08:25 | Day surgery (SDC) | payer MEDICARE ==
[2024-04-13] MEDS: Lactated Ringers 1,000 ML IV SCH (09:08)
[2024-04-13] MEDS ORDERED: Propofol 200 MG/20 ML SDV ONE (10:48)
[2024-04-13 13:10] VITALS: BP 146/68; PULSE 70
== END 2024-04-13 13:07 | disposition home or self-care (01) ==
LOC: JP.SDS 08:25
PROVIDERS: ATTEND Family Medicine
DX: K29.50 Unspecified chronic gastritis without bleeding (principal); K31.7 Polyp of stomach and duodenum; K22.70 Barrett's esophagus without dysplasia; E11.22 Type 2 diabetes mellitus with diabetic chronic kidney disease; N18.32 Chronic kidney disease, stage 3b; R68.81 Early satiety; R63.4 Abnormal weight loss
CPT/HCPCS: 00731; 43239; J2704; J7120; 88305; 88313; 88341; 88342

== ENCOUNTER 2024-05-04 02:39 | Emergency (ER) | payer MEDICARE ==
[2024-05-04] MEDS: Albuterol/Ipratropium 3.0-0.5 MG/3 ML Neb Soln NEB ONE (02:57)
[2024-05-04] MEDS: Albuterol/Ipratropium 3.0-0.5 MG/3 ML Neb Soln ONE (03:10)
[2024-05-04 03:41] LABS: CORONAVIRUS COVID-19 NAA NEGATIVE (NEGATIVE); INFLUENZA A NAA NEGATIVE (NEGATIVE); INFLUENZA B NAA NEGATIVE (NEGATIVE); RESPIRATORY SYNCYTIAL VIR NAA NEGATIVE (NEGATIVE)
[2024-05-04 04:14] LABS: BASOPHILS PERCENT AUTO 0.9 % (0.1-1.3); EOSINOPHILS ABSOLUTE AUTO 0.71 K/uL (0.00-0.40); EOSINOPHILS PERCENT AUTO 6.5 % (0.0-5.4); HEMATOCRIT 37.3 % (38.4-49.7); HEMOGLOBIN 12.5 g/dL (12.9-16.9); IMMATURE GRAN ABSOLUTE AUTO 0.04 K/uL (0.00-0.23); IMMATURE GRAN PERCENT AUTO 0.4 % (0.0-0.7); LYMPHOCYTES ABSOLUTE AUTO 1.11 K/uL (0.8-3.3); LYMPHOCYTES PERCENT AUTO 10.2 % (11.4-47.7); MEAN CORPUSCULAR HEMOGLOBIN 30.9 pg (31.6-35.5); MEAN CORPUSCULAR HGB CONC 33.5 g/dL (31.6-35.5); MEAN CORPUSCULAR VOLUME 92.1 fL (81.4-99.0); MONOCYTES PERCENT AUTO 9.2 % (3.3-12.6); NEUTROPHILS ABSOLUTE AUTO 7.91 K/uL (1.0-7.6); NEUTROPHILS PERCENT AUTO 72.8 % (40.0-78.1); PLATELET COUNT,PLT 214 K/uL (130-375); RED BLOOD CELL COUNT 4.05 M/uL (4.14-5.76); WHITE BLOOD CELL COUNT,WBC 10.9 K/uL (3.2-11.0)
[2024-05-04 04:38] LABS: ANION GAP 11.6 mmol/L (5.0-14.0); CALCIUM 8.9 mg/dL (8.5-10.1); EST CRCL DRUG DOSING (CG) 23.93 mL/min; POTASSIUM,K 4.5 mmol/L (3.6-5.2)
[2024-05-04 05:08] VITALS: BP 147/59; PULSE 83
== END 2024-05-04 05:19 | disposition home or self-care (01) ==
LOC: JP.ED 02:39
DX: J06.9 Acute upper respiratory infection, unspecified (principal); B97.89 Other viral agents as the cause of diseases classified elsewhere; J45.909 Unspecified asthma, uncomplicated; M19.90 Unspecified osteoarthritis, unspecified site; E11.9 Type 2 diabetes mellitus without complications; Z86.73 Personal history of transient ischemic attack (TIA), and cerebral infarction without residual deficits; Z86.16 Personal history of COVID-19; Z90.89 Acquired absence of other organs; Z88.0 Allergy status to penicillin; Z88.1 Allergy status to other antibiotic agents; Z88.2 Allergy status to sulfonamides; Z88.8 Allergy status to other drugs, medicaments and biological substances; Z91.013 Allergy to seafood; Z91.048 Other nonmedicinal substance allergy status; Z91.018 Allergy to other foods; Z79.84 Long term (current) use of oral hypoglycemic drugs; Z79.82 Long term (current) use of aspirin; Z79.51 Long term (current) use of inhaled steroids; Z79.899 Other long term (current) drug therapy
CPT/HCPCS: 0241U; 36415; 71045; 80048; 84484; 85025; 94640; 99285; 99283; J7620